=== PATIENT | female | born 1985 | race Caucasian/White ===

== ENCOUNTER 2021-01-16 22:22 | Emergency (ER) | payer MEDICAID ==
--- NOTE | 2021-01-16 22:35 | EDM.PDOC ---
ED HPI GENERAL MEDICAL PROBLEM - General Chief Complaint: ENT Problem Stated Complaint: THROAT IS SWOLLEN Time Seen by Provider: 01/16/21 22:34 - History of Present Illness INITIAL COMMENTS - FREE TEXT/NARRATIVE: 35-year-old female presents to the emergency room with throat discomfort. This is been going on for the last couple of days progressively getting worse. Patient also has a growing mass on her left forearm. She is not sure how that got there. Patient was not aware of any fevers or chills however she has low- grade fever here in the emergency department. Patient denies being under the influence of any medication or illicit drugs. She denies using any routine medications. - Related Data Allergies Allergy/AdvReac Type Severity Reaction Status Date / Time No Known Allergies Allergy Verified 01/16/21 22:51 Home Meds: Home Meds Clindamycin HCl 600 mg PO TID #42 capsule 01/17/21 [Rx] ED ROS GENERAL - Review of Systems Review Of Systems: See Below Constitutional: Reports: No Symptoms HEENT: Reports: Throat Pain, Throat Swelling Respiratory: Reports: No Symptoms Cardiovascular: Reports: No Symptoms Endocrine: Reports: No Symptoms GI/Abdominal: Reports: No Symptoms : Reports: No Symptoms Musculoskeletal: Reports: Other (Left arm pain) Skin: Reports: Other (She has a mass growing on the left arm most consistent with a developing abscess) Psychiatric: Reports: Anxiety Hematologic/Lymphatic: Reports: No Symptoms Immunologic: Reports: No Symptoms ED EXAM, GENERAL - Physical Exam Exam: See Below Exam Limited By: No Limitations General Appearance: Alert, Anxious, Other (I cannot exclude the possibility of her being under the influence of a stimulant type medication) Eye Exam: Bilateral Eye: Normal Inspection Ears: Normal External Exam, Normal Canal, Hearing Grossly Normal, Normal TMs Nose: Normal Inspection, Normal Mucosa, No Blood Throat/Mouth: Normal Inspection, Other (Mild erythema in the posterior pharynx no obvious swelling no airway compromise) Head: Atraumatic, Normocephalic Neck: Normal Inspection, Supple, Non-Tender, Full Range of Motion. No: Lymphadenopathy (L), Lymphadenopathy (R) Cardiovascular: Normal Peripheral Pulses, Regular Rate, Rhythm, No Edema GI/Abdominal: Normal Bowel Sounds, Soft, Non-Tender Extremities: Other (Patient has an abscess developing on her left forearm dorsal radial aspect. This is still fairly deep.) Psychiatric: Normal Affect, Normal Mood Skin Exam: Warm, Dry Lymphatic: No Adenopathy Course - Vital Signs Last Recorded V/S: Last Vital Signs Temp 38.0 C 01/16/21 22:44 Pulse 132 H 01/16/21 22:44 Resp 20 01/16/21 22:44 BP 84/54 L 01/16/21 22:44 Pulse Ox 99 01/16/21 22:44 - Orders/Labs/Meds Orders: Active Orders 24 hr Category Date Time Status Chest 1V Frontal [CR] Stat Exams 01/17/21 01:57 Taken CULTURE BLOOD [BC] Stat Lab 01/16/21 11:58 Received CULTURE BLOOD [BC] Stat Lab 01/16/21 23:35 Received CULTURE URINE [MREF] Stat Lab 01/17/21 02:44 Received THROAT CULTURE [MREF] Stat Lab 01/17/21 01:49 Ordered Blood Culture x2 Reflex Set [OM.PC] Stat Oth 01/16/21 22:49 Ordered Labs: Laboratory Tests 01/16/21 01/16/21 01/16/21 Range/Units 22:49 23:35 23:35 WBC 10.93 H (3.98-10.04) K/mm3 RBC 4.45 (3.98-5.22) M/mm3 Hgb 13.2 (11.2-15.7) gm/dl Hct 38.4 (34.1-44.9) % MCV 86.3 (79.4-94.8) fl MCH 29.7 (25.6-32.2) pg MCHC 34.4 (32.2-35.5) g/dl RDW Std Deviation 40.7 (36.4-46.3) fL Plt Count 150 L (182-369) K/mm3 MPV 10.2 (9.4-12.3) fl Neutrophils % (Manual) 87 H (40-60) % Band Neutrophils % 0 (0-10) % Lymphocytes % (Manual) 5 L (20-40) % Atypical Lymphs % 0 % Monocytes % (Manual) 5 (2-10) % Eosinophils % (Manual) 3 (0.7-5.8) % Basophils % (Manual) 0 L (0.1-1.2) Platelet Estimate Adequate RBC Morph Comment Normal ESR (0-20) mm/hr PT (9.7-12.0) SECONDS INR Sodium 131 L (136-145) mEq/L Potassium 3.5 (3.5-5.1) mEq/L Chloride 97 L (98-107) mEq/L Carbon Dioxide 25 (21-32) mEq/L Anion Gap 12.5 (5-15) BUN 48 H (7-18) mg/dL Creatinine 3.0 H (0.55-1.02) mg/dL Est Cr Clr Drug Dosing 27.09 mL/min Estimated GFR (MDRD) 18 (>60) mL/min BUN/Creatinine Ratio 16.0 (14-18) Glucose 131 H (70-99) mg/dL Lactic Acid 1.8 (0.4-2.0) mmol/L Calcium 8.1 L (8.5-10.1) mg/dL Total Bilirubin 1.0 (0.2-1.0) mg/dL AST 47 H (15-37) U/L ALT 83 H (14-59) U/L Alkaline Phosphatase 80 (46-116) U/L C-Reactive Protein (<1.0) mg/dL Total Protein 5.9 L (6.4-8.2) g/dl Albumin 2.8 L (3.4-5.0) g/dl Globulin 3.1 gm/dL Albumin/Globulin Ratio 0.9 L (1-2) HCG, Qual (NEGATIVE) Urine Color (Yellow) Urine Appearance (Clear) Urine pH (5.0-8.0) Ur Specific [place] (1.005-1.030) Urine Protein (Negative) Urine Glucose (UA) (Negative) Urine Ketones (Negative) Urine Occult Blood (Negative) Urine Nitrite (Negative) Urine Bilirubin (Negative) Urine Urobilinogen (0.2-1.0) Ur Leukocyte Esterase (Negative) U Hyaline Cast (Auto) (0-5) /lpf Urine RBC (0-5) /hpf Urine WBC (0-5) /hpf Ur Squamous Epith Cells (0-5) /hpf Urine Bacteria (FEW) /hpf Urine Mucus (FEW) /hpf Urine Opiates Screen (OQECLW=134) Ur Buprenorphine Scrn (CUTOFF=10) Ur Oxycodone Screen (AOL6HW=041) Urine Methadone Screen (XGBWKF=545) Ur Propoxyphene Screen (YRADCU=584) Ur Barbiturates Screen (NUXLMR=037) Ur Tricyclics Screen (IWFKGY=693) Ur Phencyclidine Scrn (CUTOFF=25) Ur Amphetamine Screen (CHBWHX=624) U Methamphetamines Scrn (KZSLDF=759) U Benzodiazepines Scrn (VKSKZP=506) U Cocaine Metab Screen (QRXAMI=825) U Marijuana (THC) Screen (CUTOFF=50) Ethyl Alcohol 0.00 (0.00) gm% SARS-CoV-2 RNA (KAYLYNN) (NEGATIVE) Group A Strep (PCR) (NOT DETECT) 01/16/21 01/16/21 01/16/21 Range/Units 23:35 23:35 23:35 WBC (3.98-10.04) K/mm3 RBC (3.98-5.22) M/mm3 Hgb (11.2-15.7) gm/dl Hct (34.1-44.9) % MCV (79.4-94.8) fl MCH (25.6-32.2) pg MCHC (32.2-35.5) g/dl RDW Std Deviation (36.4-46.3) fL Plt Count (182-369) K/mm3 MPV (9.4-12.3) fl Neutrophils % (Manual) (40-60) % Band Neutrophils % (0-10) % Lymphocytes % (Manual) (20-40) % Atypical Lymphs % % Monocytes % (Manual) (2-10) % Eosinophils % (Manual) (0.7-5.8) % Basophils % (Manual) (0.1-1.2) Platelet Estimate RBC Morph Comment ESR 10 (0-20) mm/hr PT 11.4 (9.7-12.0) SECONDS INR 1.07 Sodium (136-145) mEq/L Potassium (3.5-5.1) mEq/L Chloride (98-107) mEq/L Carbon Dioxide (21-32) mEq/L Anion Gap (5-15) BUN (7-18) mg/dL Creatinine (0.55-1.02) mg/dL Est Cr Clr Drug Dosing mL/min Estimated GFR (MDRD) (>60) mL/min BUN/Creatinine Ratio (14-18) Glucose (70-99) mg/dL Lactic Acid (0.4-2.0) mmol/L Calcium (8.5-10.1) mg/dL Total Bilirubin (0.2-1.0) mg/dL AST (15-37) U/L ALT (14-59) U/L Alkaline Phosphatase (46-116) U/L C-Reactive Protein 15.1 H* (<1.0) mg/dL Total Protein (6.4-8.2) g/dl Albumin (3.4-5.0) g/dl Globulin gm/dL Albumin/Globulin Ratio (1-2) HCG, Qual (NEGATIVE) Urine Color (Yellow) Urine Appearance (Clear) Urine pH (5.0-8.0) Ur Specific [place] (1.005-1.030) Urine Protein (Negative) Urine Glucose (UA) (Negative) Urine Ketones (Negative) Urine Occult Blood (Negative) Urine Nitrite (Negative) Urine Bilirubin (Negative) Urine Urobilinogen (0.2-1.0) Ur Leukocyte Esterase (Negative) U Hyaline Cast (Auto) (0-5) /lpf Urine RBC (0-5) /hpf Urine WBC (0-5) /hpf Ur Squamous Epith Cells (0-5) /hpf Urine Bacteria (FEW) /hpf Urine Mucus (FEW) /hpf Urine Opiates Screen (NAZMCW=646) Ur Buprenorphine Scrn (CUTOFF=10) Ur Oxycodone Screen (UYP7SY=046) Urine Methadone Screen (DFUKTH=563) Ur Propoxyphene Screen (ZCJCCR=540) Ur Barbiturates Screen (NWHTFC=450) Ur Tricyclics Screen (LNNSMP=205) Ur Phencyclidine Scrn (CUTOFF=25) Ur Amphetamine Screen (HRZTWO=502) U Methamphetamines Scrn (BDJSYG=126) U Benzodiazepines Scrn (WHMVLO=325) U Cocaine Metab Screen (DGPNLQ=802) U Marijuana (THC) Screen (CUTOFF=50) Ethyl Alcohol (0.00) gm% SARS-CoV-2 RNA (KAYLYNN) (NEGATIVE) Group A Strep (PCR) (NOT DETECT) 01/17/21 01/17/21 01/17/21 Range/Units 01:05 01:56 02:23 WBC (3.98-10.04) K/mm3 RBC (3.98-5.22) M/mm3 Hgb (11.2-15.7) gm/dl Hct (34.1-44.9) % MCV (79.4-94.8) fl MCH (25.6-32.2) pg MCHC (32.2-35.5) g/dl RDW Std Deviation (36.4-46.3) fL Plt Count (182-369) K/mm3 MPV (9.4-12.3) fl Neutrophils % (Manual) (40-60) % Band Neutrophils % (0-10) % Lymphocytes % (Manual) (20-40) % Atypical Lymphs % % Monocytes % (Manual) (2-10) % Eosinophils % (Manual) (0.7-5.8) % Basophils % (Manual) (0.1-1.2) Platelet Estimate RBC Morph Comment ESR (0-20) mm/hr PT (9.7-12.0) SECONDS INR Sodium (136-145) mEq/L Potassium (3.5-5.1) mEq/L Chloride (98-107) mEq/L Carbon Dioxide (21-32) mEq/L Anion Gap (5-15) BUN (7-18) mg/dL Creatinine (0.55-1.02) mg/dL Est Cr Clr Drug Dosing mL/min Estimated GFR (MDRD) (>60) mL/min BUN/Creatinine Ratio (14-18) Glucose (70-99) mg/dL Lactic Acid (0.4-2.0) mmol/L Calcium (8.5-10.1) mg/dL Total Bilirubin (0.2-1.0) mg/dL AST (15-37) U/L ALT (14-59) U/L Alkaline Phosphatase (46-116) U/L C-Reactive Protein (<1.0) mg/dL Total Protein (6.4-8.2) g/dl Albumin (3.4-5.0) g/dl Globulin gm/dL Albumin/Globulin Ratio (1-2) HCG, Qual Negative (NEGATIVE) Urine Color (Yellow) Urine Appearance (Clear) Urine pH (5.0-8.0) Ur Specific [place] (1.005-1.030) Urine Protein (Negative) Urine Glucose (UA) (Negative) Urine Ketones (Negative) Urine Occult Blood (Negative) Urine Nitrite (Negative) Urine Bilirubin (Negative) Urine Urobilinogen (0.2-1.0) Ur Leukocyte Esterase (Negative) U Hyaline Cast (Auto) (0-5) /lpf Urine RBC (0-5) /hpf Urine WBC (0-5) /hpf Ur Squamous Epith Cells (0-5) /hpf Urine Bacteria (FEW) /hpf Urine Mucus (FEW) /hpf Urine Opiates Screen (DGCIVM=943) Ur Buprenorphine Scrn (CUTOFF=10) Ur Oxycodone Screen (XME3HV=599) Urine Methadone Screen (XPAWHN=385) Ur Propoxyphene Screen (VHSBXH=968) Ur Barbiturates Screen (FGAYAS=852) Ur Tricyclics Screen (DHGPGU=690) Ur Phencyclidine Scrn (CUTOFF=25) Ur Amphetamine Screen (HAYYOH=616) U Methamphetamines Scrn (NTCWKU=617) U Benzodiazepines Scrn (BNGVJH=398) U Cocaine Metab Screen (ONVSHN=198) U Marijuana (THC) Screen (CUTOFF=50) Ethyl Alcohol (0.00) gm% SARS-CoV-2 RNA (KAYLYNN) Negative (NEGATIVE) Group A Strep (PCR) Not detected (NOT DETECT) 01/17/21 01/17/21 Range/Units 02:44 02:46 WBC (3.98-10.04) K/mm3 RBC (3.98-5.22) M/mm3 Hgb (11.2-15.7) gm/dl Hct (34.1-44.9) % MCV (79.4-94.8) fl MCH (25.6-32.2) pg MCHC (32.2-35.5) g/dl RDW Std Deviation (36.4-46.3) fL Plt Count (182-369) K/mm3 MPV (9.4-12.3) fl Neutrophils % (Manual) (40-60) % Band Neutrophils % (0-10) % Lymphocytes % (Manual) (20-40) % Atypical Lymphs % % Monocytes % (Manual) (2-10) % Eosinophils % (Manual) (0.7-5.8) % Basophils % (Manual) (0.1-1.2) Platelet Estimate RBC Morph Comment ESR (0-20) mm/hr PT (9.7-12.0) SECONDS INR Sodium (136-145) mEq/L Potassium (3.5-5.1) mEq/L Chloride (98-107) mEq/L Carbon Dioxide (21-32) mEq/L Anion Gap (5-15) BUN (7-18) mg/dL Creatinine (0.55-1.02) mg/dL Est Cr Clr Drug Dosing mL/min Estimated GFR (MDRD) (>60) mL/min BUN/Creatinine Ratio (14-18) Glucose (70-99) mg/dL Lactic Acid (0.4-2.0) mmol/L Calcium (8.5-10.1) mg/dL Total Bilirubin (0.2-1.0) mg/dL AST (15-37) U/L ALT (14-59) U/L Alkaline Phosphatase (46-116) U/L C-Reactive Protein (<1.0) mg/dL Total Protein (6.4-8.2) g/dl Albumin (3.4-5.0) g/dl Globulin gm/dL Albumin/Globulin Ratio (1-2) HCG, Qual (NEGATIVE) Urine Color Yellow (Yellow) Urine Appearance Slt cloudy H (Clear) Urine pH 6.0 (5.0-8.0) Ur Specific [place] 1.015 (1.005-1.030) Urine Protein Trace H (Negative) Urine Glucose (UA) Negative (Negative) Urine Ketones Negative (Negative) Urine Occult Blood 2+ H (Negative) Urine Nitrite Negative (Negative) Urine Bilirubin Negative (Negative) Urine Urobilinogen 0.2 (0.2-1.0) Ur Leukocyte Esterase 1+ H (Negative) U Hyaline Cast (Auto) 0-5 (0-5) /lpf Urine RBC 5-10 H (0-5) /hpf Urine WBC 10-20 H (0-5) /hpf Ur Squamous Epith Cells 0-5 (0-5) /hpf Urine Bacteria Many H (FEW) /hpf Urine Mucus Few (FEW) /hpf Urine Opiates Screen Negative (ROJLFZ=671) Ur Buprenorphine Scrn Negative (CUTOFF=10) Ur Oxycodone Screen Negative (YJX7LL=424) Urine Methadone Screen Negative (HGFIBD=572) Ur Propoxyphene Screen Negative (JIFPDI=512) Ur Barbiturates Screen Negative (YSCCWZ=249) Ur Tricyclics Screen Negative (MBYJSL=451) Ur Phencyclidine Scrn Negative (CUTOFF=25) Ur Amphetamine Screen Presumptive positive H (IGKXRB=592) U Methamphetamines Scrn Presumptive positive H (BUNIZV=020) U Benzodiazepines Scrn Negative (LTWPZP=717) U Cocaine Metab Screen Negative (YQGAFW=805) U Marijuana (THC) Screen Negative (CUTOFF=50) Ethyl Alcohol (0.00) gm% SARS-CoV-2 RNA (KAYLYNN) (NEGATIVE) Group A Strep (PCR) (NOT DETECT) Meds: Medications Discontinued Medications Generic Name Dose Route Start Last Admin Trade Name Etelvina PRN Reason Stop Dose Admin Clindamycin HCl 600 mg 01/17/21 02:47 01/17/21 02:52 Clindamycin Hcl 150 Mg Cap PO 01/17/21 02:48 600 mg ONETIME ONE Administration Lactated Ringer's 1,000 mls @ 999 mls/hr 01/16/21 22:51 01/16/21 23:18 Ringers, Lactated IV 01/16/21 23:51 999 mls/hr .BOLUS ONE Administration Lactated Ringer's 1,000 mls @ 150 mls/hr 01/16/21 23:00 01/17/21 02:44 Ringers, Lactated IV 500 mls/hr ASDIRECTED PAULY Infusion Lactated Ringer's 1,000 mls @ 999 mls/hr 01/17/21 01:15 01/17/21 02:44 Ringers, Lactated IV 01/17/21 02:15 999 mls/hr ONETIME ONE Administration - Re-Assessments/Exams Free Text/Narrative Re-Assessment/Exam: 01/17/21 01:47 Getting IV access was difficult we now have to small bore IVs. The patient is responding to fluid after the first liter pulses right around 100 her MAP is 66. Labs are concerning creatinine of 3.0 BUN 48 White count is minimally elevated. The patient has been reluctant for us to get a cath UA and I have informed her of the importance of getting this somewhat no for dealing with an infection there. Now she thinks she can go we will try this. The patient does not want to stay in the hospital despite multiple discussions about the dangers she is in. I explained to her she could because it looks like she is developing an overwhelming infection. Her kidneys are failing. But she refuses to stay. I did discuss the situation with the telepharmacy about antibiotics and about the best we can come up with his clindamycin 600 mg 3 times a day. 01/17/21 02:53 The patient is still insistent on leaving. I was hoping to give her her initial dose of antibiotics IV but she is wanting to go. I again informed her that she could because of this. Her kidneys are failing and this could get worse. She has a developing abscess on her left forearm it is not ready to drain at this time however this could change soon. By leaving the hospital she could have worsening disability down the road. The patient's work-up is not complete but she does not want to stick around. The patient informs me she has the ability to get her antibiotics filled so she is given a prescription for clindamycin 300 mg tablets 2 tablets 3 times a day for 7 days. This was not E scribed as the patient was not sure what pharmacy to use. 01/17/21 02:56 01/17/21 03:22 After the patient left her urinalysis came back suggestive of UTI. Departure - Departure Time of Disposition: 02:48 Disposition: Against Medical Advice 07 Clinical Impression: Sepsis, Abscess of left arm, Kidney failure - Discharge Information Prescriptions: Clindamycin HCl 600 mg PO TID #42 capsule Instructions: Skin Abscess, [id number], Sepsis, Diagnosis, Adult Referrals: PCP,None [Primary Care Provider] - Forms: ED Department Discharge Additional Instructions: Return to the emergency room with any questions problems or worsening symptoms. Drink lots of fluids. You have been started on clindamycin this is an antibiotic take 2 capsules every 8 hours until all gone. Follow-up in the hospital clinic later today for recheck their phone number is [phone] call early to set up an appointment. Sepsis Event Note (ED) - Focused Exam Vital Signs: Vital Signs Temp Pulse Resp BP Pulse Ox 01/16/21 22:44 38.0 C 132 H 20 84/54 L 99 - My Orders Last 24 Hours: My Active Orders 01/16/21 11:58 CULTURE BLOOD [BC] Stat 01/16/21 22:49 Blood Culture x2 Reflex Set [OM.PC] Stat 01/16/21 23:35 CULTURE BLOOD [BC] Stat 01/17/21 01:49 THROAT CULTURE [MREF] Stat 01/17/21 01:57 Chest 1V Frontal [CR] Stat 01/17/21 02:44 CULTURE URINE [MREF] Stat - Assessment/Plan Last 24 Hours: My Active Orders 01/16/21 11:58 CULTURE BLOOD [BC] Stat 01/16/21 22:49 Blood Culture x2 Reflex Set [OM.PC] Stat 01/16/21 23:35 CULTURE BLOOD [BC] Stat 01/17/21 01:49 THROAT CULTURE [MREF] Stat 01/17/21 01:57 Chest 1V Frontal [CR] Stat 01/17/21 02:44 CULTURE URINE [MREF] Stat
[2021-01-16] MEDS ORDERED: Lactated Ringers 1,000 ML IV ONE (22:51)
[2021-01-16] MEDS ORDERED: Lactated Ringers 1,000 ML IV SCH (23:00)
[2021-01-17] MEDS ORDERED: Lactated Ringers 1,000 ML IV ONE (01:15)
[2021-01-17] MEDS ORDERED: Clindamycin HCl 150 MG Cap PO ONE (02:47)
--- NOTE | 2021-01-17 08:05 | CR ---
Chest: Portable view of the chest was obtained. Comparison: No prior chest imaging is available. Heart size and mediastinum are normal. Lungs are clear with no acute parenchymal change. Bony structures are within normal limits. Impression: 1. Nothing acute is seen on portable chest x-ray. Diagnostic code #1
== END 2021-01-17 03:00 | disposition left against medical advice (07) ==
LOC: JD.ED 22:22
DX: A41.9 Sepsis, unspecified organism (principal); N19 Unspecified kidney failure; L02.414 Cutaneous abscess of left upper limb; Z20.822 Contact with and (suspected) exposure to COVID-19
CPT/HCPCS: 36415; 71045; 80053; 80306; 80307; 81001; 83605; 84703; 85007; 85027; 85610; 85652; 86140; 87040; 87070; 87086; 87635; 87651; 99283; A9270; J7120; 99284; U0002

== ENCOUNTER 2021-01-17 09:21 | Inpatient (IN) | payer MEDICAID ==
[2021-01-17] MEDS ORDERED: Sodium Chloride 0.9% 10 ML Syringe FLUSH PRN (10:00)
[2021-01-17] MEDS ORDERED: LORazepam 2 MG/ML SDV IVPUSH ONE (10:01)
[2021-01-17] MEDS ORDERED: Haloperidol Lactate 5 MG/ML SDV IVPUSH ONE (10:01)
[2021-01-17] MEDS ORDERED: Sodium Chloride 0.9% 1,000 ML IV ONE ×3 (10:01→15:15)
--- NOTE | 2021-01-17 10:08 | EDM.PDOC ---
ED HPI GENERAL MEDICAL PROBLEM - General Chief Complaint: ENT Problem Stated Complaint: SWOLLEN THROAT Time Seen by Provider: 01/17/21 09:27 Source of Information: Reports: Patient History Limitations: Reports: No Limitations - History of Present Illness INITIAL COMMENTS - FREE TEXT/NARRATIVE: 35 yo F returns to the ED for care after leaving AMA from the ED several hours ago. She has bilateral forearm redness and swelling. She thinks it started about 4 days ago. She is somewhat evasive about the history and is mildly altered/appears to be responding to internal stimuli which limits the history. She denies drug use (though a drug screen from recent visit is positive for meth). She is unsure whether she's had a fever. Denies vomiting/diarrhea. No respiratory symptoms. She doesn't answer further ROS/social history questions. She does state arm is painful and she is willing to stay for treatment. Hx untreated hepatitis C, no known history of kidney problems. Left Arm Pain Score (Numeric/FACES): 5 - Related Data Allergies Allergy/AdvReac Type Severity Reaction Status Date / Time No Known Allergies Allergy Verified 01/17/21 09:28 Home Meds: Home Meds Clindamycin HCl 600 mg PO TID #42 capsule 01/17/21 [Rx] Past Medical History - Past Health History Medical/Surgical History: Denies Medical/Surgical History ED ROS GENERAL - Review of Systems Review Of Systems: See Below Constitutional: Reports: Fever HEENT: Reports: No Symptoms Respiratory: Reports: No Symptoms Cardiovascular: Reports: No Symptoms Endocrine: Reports: No Symptoms GI/Abdominal: Reports: No Symptoms : Reports: No Symptoms Musculoskeletal: Reports: Arm Pain Skin: Reports: Erythema, Lesions Neurological: Reports: No Symptoms Psychiatric: Reports: Anxiety Hematologic/Lymphatic: Reports: No Symptoms Immunologic: Reports: No Symptoms ED EXAM, GENERAL - Physical Exam Exam: See Below Exam Limited By: No Limitations General Appearance: Alert, Anxious Eye Exam: Bilateral Eye: Normal Inspection Ears: Normal External Exam Nose: Normal Inspection Throat/Mouth: Normal Inspection, Normal Oropharynx, Normal Voice Head: Atraumatic, Normocephalic Neck: Normal Inspection, Supple Respiratory/Chest: No Respiratory Distress, Lungs Clear, Normal Breath Sounds Cardiovascular: Regular Rate, Rhythm, Tachycardia GI/Abdominal: Soft, Non-Tender, No Distention Extremities: Other (bilateral forearm erythema/warmth/TTP, L forearm has a developing area of fluctuance, no drainage. area of cellulitis on both extremities is confluent and extends from hands to elbows. she does have track stokes bilaterally. ) Neurological: Alert, Oriented Psychiatric: Other (anxious, mildly agitated, appears to be responding to internal stimuli. she is cooperative. ) Skin Exam: Warm, Dry Course - Vital Signs Last Recorded V/S: Last Vital Signs Temp 36.3 C 01/17/21 09:37 Pulse 109 H 01/17/21 09:37 Resp 16 01/17/21 09:37 BP 100/55 L 01/17/21 09:37 Pulse Ox 95 01/17/21 09:37 - Orders/Labs/Meds Orders: Active Orders 24 hr Category Date Time Status Peripheral IV Care [RC] . DIRECTED Care 01/17/21 10:00 Active Peripheral IV Care [RC] . DIRECTED Care 01/17/21 10:00 Active CBC WITH AUTO DIFF [HEME] Stat Lab 01/17/21 10:30 Results CULTURE BLOOD [BC] Stat Lab 01/17/21 10:30 Received CULTURE BLOOD [BC] Stat Lab 01/17/21 10:30 Received Sodium Chloride 0.9% [Normal Saline] 1,000 ml Med 01/17/21 11:27 Active IV ONETIME Sodium Chloride 0.9% [Saline Flush] Med 01/17/21 10:00 Active 10 ml FLUSH ASDIRECTED PRN Vancomycin 1 gm Med 01/17/21 10:30 Active Vancomycin 500 mg Sodium Chloride 0.9% [Normal Saline] 500 ml IV ONETIME Blood Culture x2 Reflex Set [OM.PC] Stat Oth 01/17/21 10:00 Ordered Peripheral IV Insertion Adult [OM.PC] Routine Oth 01/17/21 10:00 Ordered Medication Orders Vancomycin HCl 1 gm/Vancomycin HCl 500 mg/ Sodium Chloride 500 mls @ 250 mls/hr IV ONETIME ONE Stop: 01/17/21 12:29 Last Admin: 01/17/21 10:48 Dose: 250 mls/hr Documented by: SHAKIR Sodium Chloride (Normal Saline) 1,000 mls @ 1,000 mls/hr IV ONETIME ONE Stop: 01/17/21 12:26 Sodium Chloride (Sodium Chloride 0.9% 10 Ml Syringe) 10 ml FLUSH ASDIRECTED PRN PRN Reason: Keep Vein Open Last Admin: 01/17/21 10:45 Dose: 10 ml Documented by: SHAKIR Labs: Laboratory Tests 01/17/21 01/17/21 01/17/21 Range/Units 10:30 10:30 10:30 WBC 9.20 (3.98-10.04) K/mm3 RBC 4.08 (3.98-5.22) M/mm3 Hgb 12.1 (11.2-15.7) gm/dl Hct 34.8 (34.1-44.9) % MCV 85.3 (79.4-94.8) fl MCH 29.7 (25.6-32.2) pg MCHC 34.8 (32.2-35.5) g/dl RDW Std Deviation 40.3 (36.4-46.3) fL Plt Count 146 L (182-369) K/mm3 MPV 10.4 (9.4-12.3) fl Neut % (Auto) 85.3 H (34.0-71.1) % Lymph % (Auto) 4.8 L (19.3-51.7) % [place] % (Auto) 5.3 (4.7-12.5) % Eos % (Auto) 4.5 (0.7-5.8) Baso % (Auto) 0.1 (0.1-1.2) % Neut # (Auto) 7.85 H (1.56-6.13) K/mm3 Lymph # (Auto) 0.44 L (1.18-3.74) K/mm3 [place] # (Auto) 0.49 H (0.24-0.36) K/mm3 Eos # (Auto) 0.41 H (0.04-0.36) K/mm3 Baso # (Auto) 0.01 (0.01-0.08) K/mm3 Sodium 135 L (136-145) mEq/L Potassium 3.1 L (3.5-5.1) mEq/L Chloride 101 (98-107) mEq/L Carbon Dioxide 25 (21-32) mEq/L Anion Gap 12.1 (5-15) BUN 31 H (7-18) mg/dL Creatinine 1.7 H D (0.55-1.02) mg/dL Est Cr Clr Drug Dosing 47.81 mL/min Estimated GFR (MDRD) 34 (>60) mL/min BUN/Creatinine Ratio 18.2 H (14-18) Glucose 142 H (70-99) mg/dL Lactic Acid 1.2 (0.4-2.0) mmol/L Calcium 7.9 L (8.5-10.1) mg/dL Total Bilirubin 0.8 (0.2-1.0) mg/dL AST 38 H (15-37) U/L ALT 70 H (14-59) U/L Alkaline Phosphatase 69 (46-116) U/L Total Protein 5.5 L (6.4-8.2) g/dl Albumin 2.6 L (3.4-5.0) g/dl Globulin 2.9 gm/dL Albumin/Globulin Ratio 0.9 L (1-2) Meds: Medications Generic Name Dose Route Start Last Admin Trade Name Nachoq PRN Reason Stop Dose Admin Vancomycin HCl 1 gm/ 500 mls @ 250 mls/hr 01/17/21 10:30 01/17/21 10:48 Vancomycin HCl 500 mg/ Sodium IV 01/17/21 12:29 250 mls/hr Chloride ONETIME ONE Administration Sodium Chloride 1,000 mls @ 1,000 mls/hr 01/17/21 11:27 Normal Saline IV 01/17/21 12:26 ONETIME ONE Sodium Chloride 10 ml 01/17/21 10:00 01/17/21 10:45 Sodium Chloride 0.9% 10 Ml Syringe FLUSH 10 ml ASDIRECTED PRN Administration Keep Vein Open Discontinued Medications Generic Name Dose Route Start Last Admin Trade Name Nachoq PRN Reason Stop Dose Admin Haloperidol Lactate 2.5 mg 01/17/21 10:01/17/21 10:42 Haloperidol Lactate 5 Mg/Ml Sdv IVPUSH 01/17/21 10:02 2.5 mg ONETIME ONE Administration Sodium Chloride 1,000 mls @ 1,000 mls/hr 01/17/21 10:01/17/21 10:37 Normal Saline IV 01/17/21 11:00 1,000 mls/hr ONETIME ONE Administration Lorazepam 1 mg 01/17/21 10:01/17/21 10:38 Lorazepam 2 Mg/Ml Sdv IVPUSH 01/17/21 10:02 1 mg ONETIME ONE Administration - Re-Assessments/Exams Free Text/Narrative Re-Assessment/Exam: 01/17/21 10:11 Labs from last night significant for creatinine of 3.0. We will repeat labs now. Ordered vancomycin for concern for sepsis. Anticipate admission for cellulitis/sepsis. Abscess on L forearm will need drainage at some point - however, she is mildly agitated/appears to be responding to internal stimuli, likely due to meth use. Will wait until she is more sober for consent from patient and for better safety for healthcare workers involved. 01/17/21 11:[address] Fernandez who agrees to evaluate the patient for admission. She is sleeping comfortably after ativan and haldol. Will give a second L of NS. Creatinine improved this morning to 1.7. CBC/lactate OK. Departure - Departure Time of Disposition: 11:29 Disposition: Admitted As Inpatient 65 Clinical Impression: Right forearm cellulitis, Cellulitis of left forearm, Acute kidney injury, Abscess of left forearm, Methamphetamine intoxication, Dehydration - Discharge Information Referrals: PCP,None [Primary Care Provider] - Forms: ED Department Discharge Sepsis Event Note (ED) - Evaluation Sepsis Screening Result: Possible Sepsis Risk - Focused Exam Vital Signs: Vital Signs Temp Pulse Resp BP Pulse Ox 01/17/21 09:37 36.3 C 109 H 16 100/55 L 95 - My Orders Last 24 Hours: My Active Orders 01/17/21 10:00 Peripheral IV Care [RC] . DIRECTED Peripheral IV Care [RC] . DIRECTED Sodium Chloride 0.9% [Saline Flush] 10 ml FLUSH ASDIRECTED PRN Blood Culture x2 Reflex Set [OM.PC] Stat Peripheral IV Insertion Adult [OM.PC] Routine 01/17/21 10:30 CBC WITH AUTO DIFF [HEME] Stat CULTURE BLOOD [BC] Stat CULTURE BLOOD [BC] Stat Vancomycin 1 gm Vancomycin 500 mg Sodium Chloride 0.9% [Normal Saline] 500 ml IV ONETIME 01/17/21 11:27 Sodium Chloride 0.9% [Normal Saline] 1,000 ml IV ONETIME - Assessment/Plan Last 24 Hours: My Active Orders 01/17/21 10:00 Peripheral IV Care [RC] . DIRECTED Peripheral IV Care [RC] . DIRECTED Sodium Chloride 0.9% [Saline Flush] 10 ml FLUSH ASDIRECTED PRN Blood Culture x2 Reflex Set [OM.PC] Stat Peripheral IV Insertion Adult [OM.PC] Routine 01/17/21 10:30 CBC WITH AUTO DIFF [HEME] Stat CULTURE BLOOD [BC] Stat CULTURE BLOOD [BC] Stat Vancomycin 1 gm Vancomycin 500 mg Sodium Chloride 0.9% [Normal Saline] 500 ml IV ONETIME 01/17/21 11:27 Sodium Chloride 0.9% [Normal Saline] 1,000 ml IV ONETIME
[2021-01-17] MEDS ORDERED: Vancomycin 1 GM, Vancomycin 500 MG in Sodium Chloride 0.9% 500 ML IV ONE (10:30)
[2021-01-17] MEDS ORDERED: Ondansetron 4 MG/2 ML SDV IV PRN (11:43)
[2021-01-17] MEDS ORDERED: Acetaminophen 325 MG Tab PO PRN (11:43)
[2021-01-17] MEDS ORDERED: Ondansetron 4 MG Tab.DIS PO PRN (11:43)
[2021-01-17] MEDS ORDERED: HYDROmorphone 0.5 MG/0.5 ML Syringe IVPUSH PRN (11:43)
[2021-01-17] MEDS ORDERED: Heparin Sodium 5,000 Units/ML Vial SUBCUT SCH (11:45)
--- NOTE | 2021-01-17 15:42 | US ---
Left forearm ultrasound: Multiple real-time images of the lateral left forearm were obtained in the area described as area of lump and swelling. Findings: Diffuse soft tissue edema is seen. Possible complex fluid is seen within the subcutaneous tissues measuring 4.3 x 2.8 x 1.2 cm which either represents focal area of infection or abscess. No additional abnormality is seen to suggest additional abscess. Impression: 1. Diffuse soft tissue swelling. 2. Focal area of infection or abscess with measurements as noted above. Diagnostic code #3
[2021-01-17] MEDS: Heparin Sodium 5,000 Units/ML Vial SUBCUT SCH ×2 (15:55→22:38)
--- NOTE | 2021-01-17 16:07 | PCM.HP.2 ---
H&P History of Present Illness - General Date of Service: 01/17/21 Admit Problem/Dx: Admission Diagnosis/Problem Admission Diagnosis/Problem Sepsis Source of Information: Old Records, RN Notes Reviewed History Limitations: Reports: Altered Mental Status, Intoxication - History of Present Illness Initial Comments - Free Text/Narative: This is a 35F with limited known past medical history presenting for evaluation of left arm pain. The patient was sedated at time of evaluation with ativan and haldol and unable to provide history. Hx obtained from chart review. The patient has history of methamphetamine use and possible polysubstance abuse. She originally presented to ED yesterday for evaluation of cellulitis of forearm but left AMA. She presented back to ED this morning. She was started on IVF and vancomycin. She was noted to be agitated and given ativan and haldol. Notable labs included Cr 1.7. She was given IVF and antibiotics and admitted for further evaluation ROS unable to obtain ROS due to AMS/sedation PMHX Acute kidney injury Polysubstance abuse Hx of methamphetamine use PSurgical Hx unknown Family Hx unknown Social Hx unknown/unable to obtaine +hx of methamphetamine use Left Arm Pain Score (Numeric/FACES): 5 - Related Data Allergies/Adverse Reactions: Allergies Allergy/AdvReac Type Severity Reaction Status Date / Time No Known Allergies Allergy Verified 01/17/21 09:28 Home Medications: Home Meds . [No Known Home Meds] 01/17/21 [History] Past Medical History Psychiatric History: Reports: Addiction - Infectious Disease History Infectious Disease History: Reports: Hepatitis C Social & Family History - Family History Family Medical History: Unobtainable - Tobacco Use Tobacco Use Status *Q: Never Tobacco User Second Hand Smoke Exposure: No - Caffeine Use Caffeine Use: Reports: None - Recreational Drug Use Recreational Drug Use: Yes Drug Use in Last 12 Months: Yes Recreational Drug Type: Reports: Methamphetamine Recreational Drug Use Frequency: Weekly H&P Review of Systems - Review of Systems: Review Of Systems: Unable To Obtain Reason Not Obtained: sedation Free Text/Narrative: unable to obtain due to encephalopathy Exam - Exam Exam: See Below - Vital Signs Vital Signs: Last Vital Signs Temp 97.4 F 01/17/21 09:37 Pulse 109 H 01/17/21 09:37 Resp 16 01/17/21 09:37 BP 100/55 L 01/17/21 09:37 Pulse Ox 95 01/17/21 09:37 Weight: 172 lb - Exam Physical Exam Comments:: Gen: no acute distress, sedated and sleeping HEENT: NCAT EOMI MMM Neck: Supple CV: tachycardic; normal s1 s2 Lungs: CTAB Abd: soft, nt, nd Neuro: moves extremities; sleeping; unable to follow commands psych: unable to assess MSK: age appropriate muscle mass Skin: erythema left and right forearm; 4cm circumfrential induration left forearm - Patient Data Lab Results Last 24 hrs: Laboratory Results - last 24 hr 01/17/21 01/17/21 01/17/21 Range/Units 10:30 10:30 10:30 WBC 9.20 (3.98-10.04) K/mm3 RBC 4.08 (3.98-5.22) M/mm3 Hgb 12.1 (11.2-15.7) gm/dl Hct 34.8 (34.1-44.9) % MCV 85.3 (79.4-94.8) fl MCH 29.7 (25.6-32.2) pg MCHC 34.8 (32.2-35.5) g/dl RDW Std Deviation 40.3 (36.4-46.3) fL Plt Count 146 L (182-369) K/mm3 MPV 10.4 (9.4-12.3) fl Neut % (Auto) 85.3 H (34.0-71.1) % Lymph % (Auto) 4.8 L (19.3-51.7) % [place] % (Auto) 5.3 (4.7-12.5) % Eos % (Auto) 4.5 (0.7-5.8) Baso % (Auto) 0.1 (0.1-1.2) % Neut # (Auto) 7.85 H (1.56-6.13) K/mm3 Lymph # (Auto) 0.44 L (1.18-3.74) K/mm3 [place] # (Auto) 0.49 H (0.24-0.36) K/mm3 Eos # (Auto) 0.41 H (0.04-0.36) K/mm3 Baso # (Auto) 0.01 (0.01-0.08) K/mm3 Manual Slide Review Abnormal smear Sodium 135 L (136-145) mEq/L Potassium 3.1 L (3.5-5.1) mEq/L Chloride 101 (98-107) mEq/L Carbon Dioxide 25 (21-32) mEq/L Anion Gap 12.1 (5-15) BUN 31 H (7-18) mg/dL Creatinine 1.7 H D (0.55-1.02) mg/dL Est Cr Clr Drug Dosing 47.81 mL/min Estimated GFR (MDRD) 34 (>60) mL/min BUN/Creatinine Ratio 18.2 H (14-18) Glucose 142 H (70-99) mg/dL Lactic Acid 1.2 (0.4-2.0) mmol/L Calcium 7.9 L (8.5-10.1) mg/dL Total Bilirubin 0.8 (0.2-1.0) mg/dL AST 38 H (15-37) U/L ALT 70 H (14-59) U/L Alkaline Phosphatase 69 (46-116) U/L Total Protein 5.5 L (6.4-8.2) g/dl Albumin 2.6 L (3.4-5.0) g/dl Globulin 2.9 gm/dL Albumin/Globulin Ratio 0.9 L (1-2) Result Diagrams: 01/17/21 10:30 01/17/21 10:30 Sepsis Event Note - Evaluation Sepsis Screening Result: Possible Sepsis Risk Current Stage of Sepsis: Sepsis - Focused Exam Sepsis Event Note Statement: Focused Sepsis Exam Completed Vital Signs: Vital Signs Temp Pulse Resp BP Pulse Ox 01/17/21 09:37 97.4 F 109 H 16 100/55 L 95 *Q Meaningful Use (ADM) - VTE *Q VTE Criteria *Q: 1 - VTE Risk Assess *Q Each Risk Factor Represents 1 Point: None, Sepsis Total Score 1 Point Risk Factors: 1 - Problem List (1) Abscess of left forearm SNOMED Code(s): 38519593216664252 ICD Code: L02.414 - CUTANEOUS ABSCESS OF LEFT UPPER LIMB Status: Acute Current Visit: Yes Problem List Initiated/Reviewed/Updated: Yes Orders Last 24hrs: Active Orders 24 hr Category Date Time Status Patient Status [ADT] Routine ADT 01/17/21 13:47 Active Cardiac Monitoring [RC] CONTINUOUS Care 01/17/21 11:44 Active Intake and Output [RC] 04,16 Care 01/17/21 11:44 Active Notify Provider Consults [RC] ASDIRECTED Care 01/17/21 14:33 Active Oxygen Therapy [RC] PRN Care 01/17/21 11:43 Active VTE/DVT Education [RC] , Care 01/17/21 11:43 Active Vital Signs [RC] Q4HR Care 01/17/21 11:43 Active Consult to Physician [CONS] Routine Cons 01/17/21 14:32 Active Regular Diet [DIET] Diet 01/17/21 Lunch Active CULTURE BLOOD [BC] Stat Lab 01/17/21 10:30 Received CULTURE BLOOD [BC] Stat Lab 01/17/21 10:30 Received Acetaminophen [TylenoL] Med 01/17/21 11:43 Active 650 mg PO Q4H PRN HYDROmorphone [Dilaudid] Med 01/17/21 11:43 Active 0.5 mg IVPUSH Q2H PRN Heparin Sodium Med 01/17/21 15:00 Active 5,000 units SUBCUT Q8H Lactated Ringers [Ringers, Lactated] 1,000 ml Med 01/17/21 11:45 Active IV ASDIRECTED Ondansetron [Zofran ODT] Med 01/17/21 11:43 Active 4 mg PO Q4H PRN Ondansetron [Zofran] Med 01/17/21 11:43 Active 4 mg IV Q4H PRN Pharmacy to Dose - Vancomycin Med 01/17/21 14:30 Active 1 dose .XX ASDIRECTED PRN Sodium Chloride 0.9% [Normal Saline] 1,000 ml Med 01/17/21 15:15 Active IV ONETIME Sodium Chloride 0.9% [Saline Flush] Med 01/17/21 10:00 Active 10 ml FLUSH ASDIRECTED PRN Vancomycin 1 gm Med 01/17/21 22:00 Active Vancomycin 250 mg Sodium Chloride 0.9% [Normal Saline] 250 ml IV Q12H oxyCODONE Med 01/17/21 11:43 Active 5 mg PO Q4H PRN Blood Culture x2 Reflex Set [OM.PC] Stat Oth 01/17/21 10:00 Ordered Peripheral IV Insertion Adult [OM.PC] Routine Oth 01/17/21 10:00 Ordered Resuscitation Status Routine Resus Stat 01/17/21 11:43 Ordered Medication Orders Acetaminophen (Acetaminophen 325 Mg Tab) 650 mg PO Q4H PRN PRN Reason: Pain (Mild 1-3)/fever Heparin Sodium (Porcine) (Heparin Sodium 5,000 Units/Ml Vial) 5,000 units SUBCUT Q8H [facility] Last Admin: 01/17/21 15:55 Dose: 5,000 units Documented by: [id number] Hydromorphone HCl (Hydromorphone 0.5 Mg/0.5 Ml Syringe) 0.5 mg IVPUSH Q2H PRN PRN Reason: Pain (severe 7-10) Lactated Ringer's (Ringers, Lactated) 1,000 mls @ 125 mls/hr IV ASDIRECTED [facility] Vancomycin HCl 1 gm/Vancomycin HCl 250 mg/ Sodium Chloride 250 mls @ 166.667 mls/hr IV Q12H [facility] Sodium Chloride (Normal Saline) 1,000 mls @ 1,000 mls/hr IV ONETIME ONE Stop: 01/17/21 16:14 Last Admin: 01/17/21 15:05 Dose: 1,000 mls/hr Documented by: [id number] Ondansetron HCl (Ondansetron 4 Mg Tab.Dis) 4 mg PO Q4H PRN PRN Reason: nausea, able to take PO Ondansetron HCl (Ondansetron 4 Mg/2 Ml Sdv) 4 mg IV Q4H PRN PRN Reason: Nausea/Vomiting Oxycodone HCl (Oxycodone 5 Mg Tab) 5 mg PO Q4H PRN PRN Reason: Pain (moderate 4-6) Sodium Chloride (Sodium Chloride 0.9% 10 Ml Syringe) 10 ml FLUSH ASDIRECTED PRN PRN Reason: Keep Vein Open Last Admin: 01/17/21 10:45 Dose: 10 ml Documented by: SHAKIR Vancomycin HCl (Pharmacy To Dose - Vancomycin) 1 dose .XX ASDIRECTED PRN PRN Reason: RX TO DOSE VANCO Assessment/Plan Comment:: Assessment: This is 35F presenting with sepsis secondary to left upper extremity cellulitis 1. Sepsis/LUE cellulitis 2. Acute kidney injury; likely pre-renal 3. Mild hypovolemic hyponatremia 135 4. Hypokalemia; potassium 3.1 5. Mild thrombocytopenia 6. Transaminitis 7. Hx of methamphetamine use 8. Metabolic encephalopathy Plan -admit to icu -continue vanco; pharm to dose -UE US -Gen surgical consult for I&D -IVF -monitor I&O -electrolyte replacement -echo to evaluate for possible endocarditis -UA -avoid nephrotoxic agents; if renal function not improved; will get renal US -avoid sedating medications Code-Full code DVT ppx-heparin subq Dispo-DC to home 3-5 days - Mortality Measure Prognosis:: Good
[2021-01-17] MEDS ORDERED: Potassium Chloride 10 MEQ in Premix Bag 1 BAG IV SCH ×4 (16:15)
[2021-01-17] MEDS: Lactated Ringers 1,000 ML IV SCH (16:30)
[2021-01-17] MEDS ORDERED: Potassium Chloride 20 MEQ Tab.ER PO ONE (16:45)
[2021-01-17] MEDS: oxyCODONE 5 MG Tab PO PRN ×2 (18:20→22:38)
[2021-01-17] MEDS ORDERED: Lidocaine 1% with EPINEPHrine 1:100,000 10 ML MDV ONE ×2 (19:44→19:45)
[2021-01-17] MEDS ORDERED: Lidocaine 1% 10 ML MDV ONE (19:50)
--- NOTE | 2021-01-17 20:20 | PCM.CONS ---
H&P History of Present Illness - General Date of Service: 01/17/21 Admit Problem/Dx: Admission Diagnosis/Problem Admission Diagnosis/Problem Sepsis Source of Information: Patient, Provider - History of Present Illness Initial Comments - Free Text/Narative: The patient presents to the ED today complaining of a sore throat. She also has significant cellulitis on the left arm with history of IV drug use. She reports the left arm has been painful for the last 5 days. She complains of significant pain in the left 3rd digit. she denies any fever, chills or weakness. Left Arm Pain Score (Numeric/FACES): 10 - Related Data Allergies/Adverse Reactions: Allergies Allergy/AdvReac Type Severity Reaction Status Date / Time No Known Allergies Allergy Verified 01/17/21 09:28 Home Medications: Home Meds . [No Known Home Meds] 01/17/21 [History] Past Medical History - Past Health History Medical/Surgical History: Denies Medical/Surgical History Psychiatric History: Reports: Addiction - Infectious Disease History Infectious Disease History: Reports: Hepatitis C Social & Family History - Family History Oncologic: Reports: Other (See Below) (father with multiple cancers) - Tobacco Use Tobacco Use Status *Q: Current Some Day Tobacco User Years of Tobacco use: 20 Packs/Tins Daily: 0.5 Second Hand Smoke Exposure: No - Caffeine Use Caffeine Use: Reports: None - Recreational Drug Use Recreational Drug Use: Yes Drug Use in Last 12 Months: Yes Recreational Drug Type: Reports: Methamphetamine Recreational Drug Use Frequency: Daily H&P Review of Systems - Review of Systems: Review Of Systems: See Below General: Reports: No Symptoms Pulmonary: Reports: No Symptoms Cardiovascular: Reports: No Symptoms Gastrointestinal: Reports: No Symptoms Genitourinary: Reports: No Symptoms Musculoskeletal: Reports: No Symptoms Skin: Reports: Erythema Neurological: Reports: No Symptoms Hematologic/Lymphatic: Reports: No Symptoms Exam - Exam Exam: See Below - Vital Signs Vital Signs: Last Vital Signs Temp 36.3 C 01/17/21 09:37 Pulse 109 H 01/17/21 09:37 Resp 16 01/17/21 09:37 BP 100/55 L 01/17/21 09:37 Pulse Ox 95 01/17/21 09:37 Weight: 79.464 kg - Exam Quality Assessment: No: Supplemental Oxygen General: Alert, Oriented, Lethargic HEENT: Conjunctiva Clear, EOMI Neck: Supple Lungs: Normal Respiratory Effort Cardiovascular: Regular Rate, Regular Rhythm GI/Abdominal Exam: Soft, Non-Tender, No Distention Extremities: Other (bilatera hand swelling with pitting edema of LUE) Peripheral Pulses: 2+: Radial (L), Dorsalis Pedis (L), Dorsalis Pedis (R) Skin: Warm, Dry, Intact, Other (erythema with fluctuant absces on the left arm) Neurological: Cranial Nerves Intact Neuro Extensive - Mental Status: Normal Mood/Affect - Patient Data Lab Results Last 24 hrs: Laboratory Results - last 24 hr 01/17/21 01/17/21 01/17/21 Range/Units 10:30 10:30 10:30 WBC 9.20 (3.98-10.04) K/mm3 RBC 4.08 (3.98-5.22) M/mm3 Hgb 12.1 (11.2-15.7) gm/dl Hct 34.8 (34.1-44.9) % MCV 85.3 (79.4-94.8) fl MCH 29.7 (25.6-32.2) pg MCHC 34.8 (32.2-35.5) g/dl RDW Std Deviation 40.3 (36.4-46.3) fL Plt Count 146 L (182-369) K/mm3 MPV 10.4 (9.4-12.3) fl Neut % (Auto) 85.3 H (34.0-71.1) % Lymph % (Auto) 4.8 L (19.3-51.7) % [place] % (Auto) 5.3 (4.7-12.5) % Eos % (Auto) 4.5 (0.7-5.8) Baso % (Auto) 0.1 (0.1-1.2) % Neut # (Auto) 7.85 H (1.56-6.13) K/mm3 Lymph # (Auto) 0.44 L (1.18-3.74) K/mm3 [place] # (Auto) 0.49 H (0.24-0.36) K/mm3 Eos # (Auto) 0.41 H (0.04-0.36) K/mm3 Baso # (Auto) 0.01 (0.01-0.08) K/mm3 Manual Slide Review Abnormal smear Sodium 135 L (136-145) mEq/L Potassium 3.1 L (3.5-5.1) mEq/L Chloride 101 (98-107) mEq/L Carbon Dioxide 25 (21-32) mEq/L Anion Gap 12.1 (5-15) BUN 31 H (7-18) mg/dL Creatinine 1.7 H D (0.55-1.02) mg/dL Est Cr Clr Drug Dosing 47.81 mL/min Estimated GFR (MDRD) 34 (>60) mL/min BUN/Creatinine Ratio 18.2 H (14-18) Glucose 142 H (70-99) mg/dL Lactic Acid 1.2 (0.4-2.0) mmol/L Calcium 7.9 L (8.5-10.1) mg/dL Total Bilirubin 0.8 (0.2-1.0) mg/dL AST 38 H (15-37) U/L ALT 70 H (14-59) U/L Alkaline Phosphatase 69 (46-116) U/L Total Protein 5.5 L (6.4-8.2) g/dl Albumin 2.6 L (3.4-5.0) g/dl Globulin 2.9 gm/dL Albumin/Globulin Ratio 0.9 L (1-2) Result Diagrams: 01/17/21 10:30 01/17/21 10:30 Sepsis Event Note - Evaluation Sepsis Screening Result: No Definite Risk - Focused Exam Vital Signs: Vital Signs Temp Pulse Resp BP Pulse Ox 01/17/21 09:37 36.3 C 109 H 16 100/55 L 95 *Q Meaningful Use (ADM) - VTE Risk Assess *Q Each Risk Factor Represents 1 Point: Obesity ( BMI > 25 kg/m2), Sepsis, Other Risk Factor (IV drug use) Total Score 1 Point Risk Factors: 3 Consult PN Assessment/Plan (1) Abscess of left forearm SNOMED Code(s): 15402557019507254 Code(s): L02.414 - CUTANEOUS ABSCESS OF LEFT UPPER LIMB Current Visit: Yes (2) Cellulitis of left forearm SNOMED Code(s): 78661787 Code(s): L03.114 - CELLULITIS OF LEFT UPPER LIMB Current Visit: Yes Problem List Initiated/Reviewed/Updated: Yes Plan: 35 y/o lady with abscess and cellulitis of left arm - plan for incision and drainage. Discussed risk of bleeding, her written consent was obtained - continue IV ab - medical management per primary for sepsis Daily dressing change with exchange of packing and dry dressing. Ella Melgar MD General surgery
--- NOTE | 2021-01-17 20:30 | PCM.PRNOTE ---
- Free Text/Narrative Note: Procedure Report Date of procedure: January 17, 2021 Preoperative diagnosis: [Left arm abscess Postoperative diagnosis: same Procedure: Incision and drainage of left arm abscess Surgeon: Dr. Ella Melgar Anesthesia: Local- 1% lidocaine Estimated blood loss: 5 mL IV fluids: n/a Indication for the procedure: The patient is a 35 y/o lady with a left arm abscess. We discussed incision and drainage with risk of bleeding. Her written consent was obtained. Description of the procedure: The patient's arm was sterilized with chlorhexidine. 1% lidocaine was then injected over the abscess and in a surrounding field block. A 1.5cm incision was then made over the abscess which was drained of purulent material. A small piece of skin was removed to allow for easier packing. The cavity was flushed and packed with 1/4in strip packing. A dry dressing was applied. The patient tolerated the procedure well with no apparent complications. Ella Melgar MD General surgery
[2021-01-17] MEDS: Vancomycin 1 GM, Vancomycin 250 MG in Sodium Chloride 0.9% 250 ML IV SCH (22:04)
[2021-01-18] MEDS: Lactated Ringers 1,000 ML IV SCH (02:47)
[2021-01-18] MEDS: LORazepam 2 MG/ML SDV IVPUSH PRN ×2 (06:58→15:00)
[2021-01-18] MEDS: Heparin Sodium 5,000 Units/ML Vial SUBCUT SCH ×2 (09:04→15:45)
[2021-01-18] MEDS: Vancomycin 1 GM, Vancomycin 250 MG in Sodium Chloride 0.9% 250 ML IV SCH (09:04)
[2021-01-18] MEDS ORDERED: Lidocaine 2% 100 MG/5 ML Syringe ONE (10:06)
--- NOTE | 2021-01-18 11:50 | PCM.PN ---
- General Info Date of Service: 01/18/21 Admission Dx/Problem (Free Text): Admission Diagnosis/Problem Admission Diagnosis/Problem Sepsis Subjective Update: patient was reportedly agitated this AM given ativan and now sleeping She is unable to provide hx She underwent local I&D abscess yesterday evening - Patient Data Vitals - Most Recent: Last Vital Signs Temp 97.2 F 01/18/21 08:00 Pulse 86 01/18/21 08:00 Resp 20 01/18/21 08:01 BP 90/48 L 01/18/21 08:00 Pulse Ox 97 01/18/21 08:00 Weight - Most Recent: 181 lb I&O - Last 24 Hours: Intake & Output 01/17/21 01/18/21 01/18/21 22:59 06:59 14:59 Intake Total 1620 2278 Output Total 550 1650 Balance 1070 628 Lab Results Last 24 Hours: Laboratory Results - last 24 hr 01/17/21 01/17/21 01/17/21 Range/Units 10:30 20:50 23:35 WBC (3.98-10.04) K/mm3 RBC (3.98-5.22) M/mm3 Hgb (11.2-15.7) gm/dl Hct (34.1-44.9) % MCV (79.4-94.8) fl MCH (25.6-32.2) pg MCHC (32.2-35.5) g/dl RDW Std Deviation (36.4-46.3) fL Plt Count (182-369) K/mm3 MPV (9.4-12.3) fl Neut % (Auto) (34.0-71.1) % Lymph % (Auto) (19.3-51.7) % Moore % (Auto) (4.7-12.5) % Eos % (Auto) (0.7-5.8) Baso % (Auto) (0.1-1.2) % Neut # (Auto) (1.56-6.13) K/mm3 Lymph # (Auto) (1.18-3.74) K/mm3 Moore # (Auto) (0.24-0.36) K/mm3 Eos # (Auto) (0.04-0.36) K/mm3 Baso # (Auto) (0.01-0.08) K/mm3 Manual Slide Review Sodium (136-145) mEq/L Potassium (3.5-5.1) mEq/L Chloride (98-107) mEq/L Carbon Dioxide (21-32) mEq/L Anion Gap (5-15) BUN (7-18) mg/dL Creatinine (0.55-1.02) mg/dL Est Cr Clr Drug Dosing mL/min Estimated GFR (MDRD) (>60) mL/min BUN/Creatinine Ratio (14-18) Glucose (70-99) mg/dL Lactic Acid (0.4-2.0) mmol/L Calcium (8.5-10.1) mg/dL Magnesium 1.7 L (1.8-2.4) mg/dL Total Bilirubin (0.2-1.0) mg/dL AST (15-37) U/L ALT (14-59) U/L Alkaline Phosphatase (46-116) U/L Total Protein (6.4-8.2) g/dl Albumin (3.4-5.0) g/dl Globulin gm/dL Albumin/Globulin Ratio (1-2) HCG, Qual Negative (NEGATIVE) Urine Color Yellow (Yellow) Urine Appearance Clear (Clear) Urine pH 6.5 (5.0-8.0) Ur Specific Herscher 1.015 (1.005-1.030) Urine Protein Negative (Negative) Urine Glucose (UA) Negative (Negative) Urine Ketones Negative (Negative) Urine Occult Blood 1+ H (Negative) Urine Nitrite Negative (Negative) Urine Bilirubin Negative (Negative) Urine Urobilinogen 0.2 (0.2-1.0) Ur Leukocyte Esterase Trace H (Negative) Urine RBC 0-5 (0-5) /hpf Urine WBC 0-5 (0-5) /hpf Ur Squamous Epith Cells 0-5 (0-5) /hpf Urine Bacteria Few (FEW) /hpf Urine Mucus Not seen (FEW) /hpf 01/18/21 01/18/21 01/18/21 Range/Units 06:35 06:35 09:47 WBC 6.35 (3.98-10.04) K/mm3 RBC 3.91 L (3.98-5.22) M/mm3 Hgb 11.5 (11.2-15.7) gm/dl Hct 34.6 (34.1-44.9) % MCV 88.5 D (79.4-94.8) fl MCH 29.4 (25.6-32.2) pg MCHC 33.2 (32.2-35.5) g/dl RDW Std Deviation 43.0 (36.4-46.3) fL Plt Count 154 L (182-369) K/mm3 MPV 10.0 (9.4-12.3) fl Neut % (Auto) 69.7 (34.0-71.1) % Lymph % (Auto) 9.3 L (19.3-51.7) % Moore % (Auto) 12.3 (4.7-12.5) % Eos % (Auto) 8.3 H (0.7-5.8) Baso % (Auto) 0.2 (0.1-1.2) % Neut # (Auto) 4.43 (1.56-6.13) K/mm3 Lymph # (Auto) 0.59 L (1.18-3.74) K/mm3 Moore # (Auto) 0.78 H (0.24-0.36) K/mm3 Eos # (Auto) 0.53 H (0.04-0.36) K/mm3 Baso # (Auto) 0.01 (0.01-0.08) K/mm3 Manual Slide Review Abnormal smear Sodium 140 (136-145) mEq/L Potassium 3.9 (3.5-5.1) mEq/L Chloride 106 (98-107) mEq/L Carbon Dioxide 28 (21-32) mEq/L Anion Gap 9.9 (5-15) BUN 13 (7-18) mg/dL Creatinine 1.0 (0.55-1.02) mg/dL Est Cr Clr Drug Dosing 81.28 mL/min Estimated GFR (MDRD) > 60 (>60) mL/min BUN/Creatinine Ratio 13.0 L (14-18) Glucose 125 H (70-99) mg/dL Lactic Acid 0.9 (0.4-2.0) mmol/L Calcium 7.6 L (8.5-10.1) mg/dL Magnesium (1.8-2.4) mg/dL Total Bilirubin 0.4 (0.2-1.0) mg/dL AST 32 (15-37) U/L ALT 59 (14-59) U/L Alkaline Phosphatase 67 (46-116) U/L Total Protein 4.9 L (6.4-8.2) g/dl Albumin 2.2 L (3.4-5.0) g/dl Globulin 2.7 gm/dL Albumin/Globulin Ratio 0.8 L (1-2) HCG, Qual (NEGATIVE) Urine Color (Yellow) Urine Appearance (Clear) Urine pH (5.0-8.0) Ur Specific Herscher (1.005-1.030) Urine Protein (Negative) Urine Glucose (UA) (Negative) Urine Ketones (Negative) Urine Occult Blood (Negative) Urine Nitrite (Negative) Urine Bilirubin (Negative) Urine Urobilinogen (0.2-1.0) Ur Leukocyte Esterase (Negative) Urine RBC (0-5) /hpf Urine WBC (0-5) /hpf Ur Squamous Epith Cells (0-5) /hpf Urine Bacteria (FEW) /hpf Urine Mucus (FEW) /hpf Philipp Results Last 24 Hours: Microbiology 01/17/21 10:30 Aerobic Blood Culture - Preliminary Blood - Venous - Lab Draw NO GROWTH AFTER 1 DAY Anaerobic Blood Culture - Preliminary NO GROWTH AFTER 1 DAY 01/17/21 10:30 Aerobic Blood Culture - Preliminary Blood - Venous NO GROWTH AFTER 1 DAY Anaerobic Blood Culture - Preliminary NO GROWTH AFTER 1 DAY Med Orders - Current: Current Medications Acetaminophen (Acetaminophen 325 Mg Tab) 650 mg PO Q4H PRN PRN Reason: Pain (Mild 1-3)/fever Heparin Sodium (Porcine) (Heparin Sodium 5,000 Units/Ml Vial) 5,000 units SUBCUT Q8H [facility] Last Admin: 01/18/21 09:04 Dose: 5,000 units Documented by: Hydromorphone HCl (Hydromorphone 0.5 Mg/0.5 Ml Syringe) 0.5 mg IVPUSH Q2H PRN PRN Reason: Pain (severe 7-10) Last Admin: 01/17/21 17:23 Dose: 0.5 mg Documented by: Vancomycin HCl 1 gm/Vancomycin HCl 250 mg/ Sodium Chloride 250 mls @ 166.667 mls/hr IV Q12H [facility] Last Admin: 01/18/21 09:04 Dose: 166.667 mls/hr Documented by: Lorazepam (Lorazepam 2 Mg/Ml Sdv) 0.5 mg IVPUSH Q2H PRN PRN Reason: Other Last Admin: 01/18/21 06:58 Dose: 0.5 mg Documented by: Ondansetron HCl (Ondansetron 4 Mg Tab.Dis) 4 mg PO Q4H PRN PRN Reason: nausea, able to take PO Ondansetron HCl (Ondansetron 4 Mg/2 Ml Sdv) 4 mg IV Q4H PRN PRN Reason: Nausea/Vomiting Oxycodone HCl (Oxycodone 5 Mg Tab) 5 mg PO Q4H PRN PRN Reason: Pain (moderate 4-6) Last Admin: 01/17/21 22:38 Dose: 5 mg Documented by: Sodium Chloride (Sodium Chloride 0.9% 10 Ml Syringe) 10 ml FLUSH ASDIRECTED PRN PRN Reason: Keep Vein Open Last Admin: 01/17/21 10:45 Dose: 10 ml Documented by: Vancomycin HCl (Pharmacy To Dose - Vancomycin) 1 dose .XX ASDIRECTED PRN PRN Reason: RX TO DOSE VANCO Discontinued Medications Haloperidol Lactate (Haloperidol Lactate 5 Mg/Ml Sdv) 2.5 mg IVPUSH ONETIME ONE Stop: 01/17/21 10:02 Last Admin: 01/17/21 10:42 Dose: 2.5 mg Documented by: Heparin Sodium (Porcine) (Heparin Sodium 5,000 Units/Ml Vial) 5,000 units SUBCUT Q8H [facility] Last Admin: 01/17/21 15:58 Dose: Not Given Documented by: Sodium Chloride (Normal Saline) 1,000 mls @ 1,000 mls/hr IV ONETIME ONE Stop: 01/17/21 11:00 Last Admin: 01/17/21 10:37 Dose: 1,000 mls/hr Documented by: Vancomycin HCl 1 gm/Vancomycin HCl 500 mg/ Sodium Chloride 500 mls @ 250 mls/hr IV ONETIME ONE Stop: 01/17/21 12:29 Last Admin: 01/17/21 10:48 Dose: 250 mls/hr Documented by: Sodium Chloride (Normal Saline) 1,000 mls @ 1,000 mls/hr IV ONETIME ONE Stop: 01/17/21 12:26 Last Admin: 01/17/21 15:30 Dose: Not Given Documented by: Lactated Ringer's (Ringers, Lactated) 1,000 mls @ 125 mls/hr IV ASDIRECTED [facility] Last Admin: 01/18/21 02:47 Dose: 125 mls/hr Documented by: Sodium Chloride (Normal Saline) 1,000 mls @ 1,000 mls/hr IV ONETIME ONE Stop: 01/17/21 16:14 Last Admin: 01/17/21 15:05 Dose: 1,000 mls/hr Documented by: Potassium Chloride 10 meq/ (Premix) 100 mls @ 100 mls/hr IV Q1H [facility] Stop: 01/17/21 20:14 Potassium Chloride 10 meq/ (Premix) 100 mls @ 100 mls/hr IV Q1H [facility] Stop: 01/17/21 20:14 Last Admin: 01/17/21 17:56 Dose: Not Given Documented by: Lidocaine HCl (Lidocaine 1% 10 Ml Mdv) Confirm Administered Dose 10 ml .ROUTE .STK-MED ONE Stop: 01/17/21 19:51 Last Admin: 01/17/21 22:04 Dose: 10 ml Documented by: Lidocaine HCl (Lidocaine 2% 100 Mg/5 Ml Syringe) Confirm Administered Dose 100 mg .ROUTE .STK-MED ONE Stop: 01/18/21 10:07 Lidocaine/Epinephrine (Lidocaine 1% With Epinephrine 1:100,000 10 Ml Mdv) Confirm Administered Dose 10 ml .ROUTE .STK-MED ONE Stop: 01/17/21 19:45 Last Admin: 01/17/21 22:02 Dose: Not Given Documented by: Lidocaine/Epinephrine (Lidocaine 1% With Epinephrine 1:100,000 10 Ml Mdv) Confirm Administered Dose 10 ml .ROUTE .STK-MED ONE Stop: 01/17/21 19:46 Last Admin: 01/17/21 22:02 Dose: Not Given Documented by: Lorazepam (Lorazepam 2 Mg/Ml Sdv) 1 mg IVPUSH ONETIME ONE Stop: 01/17/21 10:02 Last Admin: 01/17/21 10:38 Dose: 1 mg Documented by: Potassium Chloride (Potassium Chloride 20 Meq Tab.Er) 40 meq PO ONETIME ONE Stop: 01/17/21 16:46 Last Admin: 01/17/21 17:14 Dose: 40 meq Documented by: - Exam Physical Findings Comments:: Gen: sleeping HEENT: NCAT MMM Neck: Supple CV: RRR normal s1 s2 Lungs: CTAB abd: Soft, nt, nd Psych: unable to assess - Patient Data Lab Results Last 24 hrs: Laboratory Results - last 24 hr 01/17/21 01/17/21 01/17/21 Range/Units 10:30 20:50 23:35 WBC (3.98-10.04) K/mm3 RBC (3.98-5.22) M/mm3 Hgb (11.2-15.7) gm/dl Hct (34.1-44.9) % MCV (79.4-94.8) fl MCH (25.6-32.2) pg MCHC (32.2-35.5) g/dl RDW Std Deviation (36.4-46.3) fL Plt Count (182-369) K/mm3 MPV (9.4-12.3) fl Neut % (Auto) (34.0-71.1) % Lymph % (Auto) (19.3-51.7) % Moore % (Auto) (4.7-12.5) % Eos % (Auto) (0.7-5.8) Baso % (Auto) (0.1-1.2) % Neut # (Auto) (1.56-6.13) K/mm3 Lymph # (Auto) (1.18-3.74) K/mm3 Moore # (Auto) (0.24-0.36) K/mm3 Eos # (Auto) (0.04-0.36) K/mm3 Baso # (Auto) (0.01-0.08) K/mm3 Manual Slide Review Sodium (136-145) mEq/L Potassium (3.5-5.1) mEq/L Chloride (98-107) mEq/L Carbon Dioxide (21-32) mEq/L Anion Gap (5-15) BUN (7-18) mg/dL Creatinine (0.55-1.02) mg/dL Est Cr Clr Drug Dosing mL/min Estimated GFR (MDRD) (>60) mL/min BUN/Creatinine Ratio (14-18) Glucose (70-99) mg/dL Lactic Acid (0.4-2.0) mmol/L Calcium (8.5-10.1) mg/dL Magnesium 1.7 L (1.8-2.4) mg/dL Total Bilirubin (0.2-1.0) mg/dL AST (15-37) U/L ALT (14-59) U/L Alkaline Phosphatase (46-116) U/L Total Protein (6.4-8.2) g/dl Albumin (3.4-5.0) g/dl Globulin gm/dL Albumin/Globulin Ratio (1-2) HCG, Qual Negative (NEGATIVE) Urine Color Yellow (Yellow) Urine Appearance Clear (Clear) Urine pH 6.5 (5.0-8.0) Ur Specific Herscher 1.015 (1.005-1.030) Urine Protein Negative (Negative) Urine Glucose (UA) Negative (Negative) Urine Ketones Negative (Negative) Urine Occult Blood 1+ H (Negative) Urine Nitrite Negative (Negative) Urine Bilirubin Negative (Negative) Urine Urobilinogen 0.2 (0.2-1.0) Ur Leukocyte Esterase Trace H (Negative) Urine RBC 0-5 (0-5) /hpf Urine WBC 0-5 (0-5) /hpf Ur Squamous Epith Cells 0-5 (0-5) /hpf Urine Bacteria Few (FEW) /hpf Urine Mucus Not seen (FEW) /hpf 01/18/21 01/18/21 01/18/21 Range/Units 06:35 06:35 09:47 WBC 6.35 (3.98-10.04) K/mm3 RBC 3.91 L (3.98-5.22) M/mm3 Hgb 11.5 (11.2-15.7) gm/dl Hct 34.6 (34.1-44.9) % MCV 88.5 D (79.4-94.8) fl MCH 29.4 (25.6-32.2) pg MCHC 33.2 (32.2-35.5) g/dl RDW Std Deviation 43.0 (36.4-46.3) fL Plt Count 154 L (182-369) K/mm3 MPV 10.0 (9.4-12.3) fl Neut % (Auto) 69.7 (34.0-71.1) % Lymph % (Auto) 9.3 L (19.3-51.7) % Moore % (Auto) 12.3 (4.7-12.5) % Eos % (Auto) 8.3 H (0.7-5.8) Baso % (Auto) 0.2 (0.1-1.2) % Neut # (Auto) 4.43 (1.56-6.13) K/mm3 Lymph # (Auto) 0.59 L (1.18-3.74) K/mm3 Moore # (Auto) 0.78 H (0.24-0.36) K/mm3 Eos # (Auto) 0.53 H (0.04-0.36) K/mm3 Baso # (Auto) 0.01 (0.01-0.08) K/mm3 Manual Slide Review Abnormal smear Sodium 140 (136-145) mEq/L Potassium 3.9 (3.5-5.1) mEq/L Chloride 106 (98-107) mEq/L Carbon Dioxide 28 (21-32) mEq/L Anion Gap 9.9 (5-15) BUN 13 (7-18) mg/dL Creatinine 1.0 (0.55-1.02) mg/dL Est Cr Clr Drug Dosing 81.28 mL/min Estimated GFR (MDRD) > 60 (>60) mL/min BUN/Creatinine Ratio 13.0 L (14-18) Glucose 125 H (70-99) mg/dL Lactic Acid 0.9 (0.4-2.0) mmol/L Calcium 7.6 L (8.5-10.1) mg/dL Magnesium (1.8-2.4) mg/dL Total Bilirubin 0.4 (0.2-1.0) mg/dL AST 32 (15-37) U/L ALT 59 (14-59) U/L Alkaline Phosphatase 67 (46-116) U/L Total Protein 4.9 L (6.4-8.2) g/dl Albumin 2.2 L (3.4-5.0) g/dl Globulin 2.7 gm/dL Albumin/Globulin Ratio 0.8 L (1-2) HCG, Qual (NEGATIVE) Urine Color (Yellow) Urine Appearance (Clear) Urine pH (5.0-8.0) Ur Specific Herscher (1.005-1.030) Urine Protein (Negative) Urine Glucose (UA) (Negative) Urine Ketones (Negative) Urine Occult Blood (Negative) Urine Nitrite (Negative) Urine Bilirubin (Negative) Urine Urobilinogen (0.2-1.0) Ur Leukocyte Esterase (Negative) Urine RBC (0-5) /hpf Urine WBC (0-5) /hpf Ur Squamous Epith Cells (0-5) /hpf Urine Bacteria (FEW) /hpf Urine Mucus (FEW) /hpf Result Diagrams: 01/18/21 06:35 01/18/21 06:35 Philipp Results Last 24 hrs: Microbiology 01/17/21 10:30 Aerobic Blood Culture - Preliminary Blood - Venous - Lab Draw NO GROWTH AFTER 1 DAY Anaerobic Blood Culture - Preliminary NO GROWTH AFTER 1 DAY 01/17/21 10:30 Aerobic Blood Culture - Preliminary Blood - Venous NO GROWTH AFTER 1 DAY Anaerobic Blood Culture - Preliminary NO GROWTH AFTER 1 DAY Sepsis Event Note - Evaluation Sepsis Screening Result: No Definite Risk - Focused Exam Vital Signs: Vital Signs Temp Pulse Resp BP BP Pulse Ox 01/18/21 08:01 20 01/18/21 08:00 97.2 F 86 18 90/48 L 97 01/18/21 07:59 20 01/18/21 07:18 21 H 99/49 L 01/18/21 07:17 21 H 01/18/21 07:15 18 01/18/21 06:00 17 01/18/21 05:00 21 H 01/18/21 04:00 89 19 107/57 L 97 01/18/21 03:00 21 H 01/18/21 02:01 29 H 01/18/21 02:00 27 H 107/57 L 01/18/21 01:59 27 H 01/18/21 01:01 15 01/18/21 01:00 16 100/57 L 01/18/21 00:59 15 01/18/21 00:22 18 98/53 L 01/18/21 00:21 20 01/18/21 00:12 18 01/18/21 00:00 97.2 F 92 16 98/53 L 98 - Problem List & Annotations (1) Abscess of left forearm SNOMED Code(s): 90162502156000068 Code(s): L02.414 - CUTANEOUS ABSCESS OF LEFT UPPER LIMB Status: Acute Current Visit: Yes - Problem List Review Problem List Initiated/Reviewed/Updated: Yes - My Orders Last 24 Hours: My Active Orders 01/17/21 Lunch Regular Diet [DIET] 01/17/21 11:43 Oxygen Therapy [RC] PRN VTE/DVT Education [RC] Vital Signs [RC] Q4HR Acetaminophen [TylenoL] 650 mg PO Q4H PRN HYDROmorphone [Dilaudid] 0.5 mg IVPUSH Q2H PRN Ondansetron [Zofran ODT] 4 mg PO Q4H PRN Ondansetron [Zofran] 4 mg IV Q4H PRN oxyCODONE 5 mg PO Q4H PRN Resuscitation Status Routine 01/17/21 11:44 Intake and Output [RC] 04,16 01/17/21 13:47 Patient Status [ADT] Routine 01/17/21 14:30 Pharmacy to Dose - Vancomycin 1 dose .XX ASDIRECTED PRN 01/17/21 14:32 Consult to Physician [CONS] Routine 01/17/21 14:33 Notify Provider Consults [RC] ASDIRECTED 01/17/21 15:00 Heparin Sodium 5,000 units SUBCUT Q8H 01/17/21 16:27 Add On Test [COMM] Routine 01/17/21 16:33 Add On Test [COMM] Routine 01/17/21 16:38 LORazepam [Ativan] 0.5 mg IVPUSH Q2H PRN 01/17/21 20:50 CULTURE URINE [MREF] Stat 01/17/21 22:00 Vancomycin 1 gm Vancomycin 250 mg Sodium Chloride 0.9% [Normal Saline] 250 ml IV Q12H 01/18/21 08:08 GRAM STAIN [RM] Routine MISCELLANEOUS CULT [MREF] Routine 01/18/21 09:35 POCTesting [POC Labs] [RC] ASDIRECTED 01/18/21 12:00 PICC Line Insertion [CR] Routine 01/19/21 06:00 CBC WITH AUTO DIFF [HEME] DAILY CMP [COMPREHENSIVE METABOLIC PN,CMP] [CHEM] DAILY 01/19/21 09:00 VANCOMYCIN TROUGH [CHEM] Timed 01/20/21 06:00 CBC WITH AUTO DIFF [HEME] DAILY CMP [COMPREHENSIVE METABOLIC PN,CMP] [CHEM] DAILY 01/21/21 06:00 CBC WITH AUTO DIFF [HEME] DAILY CMP [COMPREHENSIVE METABOLIC PN,CMP] [CHEM] DAILY 01/22/21 06:00 CBC WITH AUTO DIFF [HEME] DAILY CMP [COMPREHENSIVE METABOLIC PN,CMP] [CHEM] DAILY - Plan Plan:: Assessment: This is 35F presenting with sepsis secondary to left upper extremity cellulitis 1. Mild early Sepsis/LUE cellulitis with abscess, s/p I&D on 01/17; sepsis has resolved 2. Acute kidney injury; likely pre-renal 3. Mild hypovolemic hyponatremia 135 4. Hypokalemia; potassium 3.1 on admission 5. Mild thrombocytopenia 6. Transaminitis 7. Hx of methamphetamine use 8. Metabolic encephalopathy 9. agitated delirium/psychosis 10. Suicidal ideation Plan -continue vanco; pharm to dose -UE US completed -Gen surgical consulted for I&D; I&D completed on 01/17 -IVF discontinued -electrolyte replacement -echo to evaluate for possible endocarditis completed; results pending -UA completed -PICC line placement today due to poor veins/difficult IV access The patient was reassessed this afternoon with RN and [employer]. She expresses active suicidal ideation due to personal family stressors. She continues to have agitated delirium and likely substance induced psychosis. A 24 hour medical hold was initiated, The patient became combative and attempted to leave hospital. Local PD notified. Due to ongoing psychiatric needs and limited local resources it was determined by myself and care team that she would benefit from psychiatric consultation. However, due to ongoing need for IV antibiotics for treatment of cellulitis and abscess of forearm she has been accepted to Hospital Medicine service at [facility] in [place] with anticipated inpatient psychiatry consultation. Code-Full code DVT ppx-heparin subq Dispo-DC to home 3-4 days pending culture data
--- NOTE | 2021-01-18 12:57 | CR ---
Chest: Portable view of the chest was obtained. Comparison: Prior chest x-ray of 01/17/21. Lung markings are diffusely increased on both sides of the chest. Uncertain if this relates to prominence in portable technique or represents a real abnormality. Right-sided PICC line is seen. Tip lies within the superior vena cava in satisfactory position. Heart size and mediastinum are normal. Impression: 1. Diffuse increased lung markings as described above. 2. Satisfactory position of PICC line with tip being within the superior vena cava. Diagnostic code #3
--- NOTE | 2021-01-18 14:05 | PCM.SN.2 ---
- Free Text/Narrative Note: Anesthesia Note for PICC Line Placement Time Out: 1030 Start: 1030 Stop: 1300 Ordered received for PICC line placement for patient with sepsis in need of antibiotic therapy, and also access for blood draws. Chart and allergies reviewed. Consent obtained, with risk/benefits discussed. Under US guidance after numerous attempts, 20g long angio placed to right basilic vein with good blood return and ability to flush easily with NS noted. PICC line placement procedure continued: Time Out done, and procedure performed with sterile gown, gloves, drapes noted. Area of 20g angio cleansed thoroughly with 3 chloroprep's, under sterile technique; 4 tongan Groshong NXT ClearVue catheter (REF: [id number], LOT:[id number], Exp: 2021-09-16) secured at 39cm, with catheter placement verified by portable CXR. Excellent blood return noted and catheter flushed with 20ml's of normal saline. Dressing applied: mastisol, steri-strips, and CHG tegaderm placed. Patient tolerated procedure well with verbal reassurance and encouragement given. Sera EDDY
--- NOTE | 2021-01-18 15:24 | PCM.DCSUM1 ---
Discharge Summary - Hospital Course HPI Initial Comments: This is a 35F with limited known past medical history presenting for evaluation of left arm pain. The patient was sedated at time of evaluation with ativan and haldol and unable to provide history. Hx obtained from chart review. The patient has history of methamphetamine use and possible polysubstance abuse. She originally presented to ED yesterday for evaluation of fever/cellulitis of forearm but left AMA. She presented back to ED this morning. She was started on IVF and vancomycin. She was noted to be agitated and given ativan and haldol. Notable labs included Cr 1.7. She was given IVF and antibiotics and admitted for further evaluation Brief History: Assessment: This is 35F presenting with mild sepsis (reported fever, end organ damage, tachycardia, hypotension) secondary to left upper extremity cellulitis and Abscess. 1. Mild early Sepsis/LUE cellulitis with abscess, s/p I&D on 01/17; sepsis has resolved. 2. Acute kidney injury; likely pre-renal; resolved. 3. Mild hypovolemic hyponatremia 135; resolved. 4. [place] lemia; potassium 3.1 on admission; resolved. 5. Mild thrombocytopenia. 6. Transaminitis. 7. Hx of methamphetamine use. 8. Metabolic encephalopathy. 9. agitated delirium/psychosis. 10. Suicidal ideation. Plan. -continue vanco; pharm to dose. -UE US completed. -Gen surgical consulted for I&D; I&D completed on 01/17; cultures pending. -IVF discontinued. -electrolyte replaced as need. -echo to evaluate for possible endocarditis completed; results pending. -UA completed. -PICC line placement today due to poor veins/difficult IV access. The patient was reassessed this afternoon with RN and Image Editor. She expresses active suicidal ideation due to personal family stressors. She continues to have agitated delirium and likely substance induced psychosis. A 24 hour medical hold was initiated, The patient became combative and attempted to leave hospital AMA. Local PD notified. Due to ongoing psychiatric needs and limited local resources it was determined by myself and care team that she would benefit from inpatient psychiatric consultation. However, due to ongoing need for IV antibiotics for treatment of cellulitis and abscess of forearm she needs to be on medical unit. She has been accepted to Hospital Medicine service at [facility] in [place] with anticipated inpatient psychiatry consultation. Accepting physician Dr. Spear Diagnosis: Stroke: No - Discharge Data Discharge Date: 01/18/21 ([facility]) Discharge Disposition: Admitted As Inpatient 65 Condition: Good - Referral to Home Health Primary Care Physician: PCP None - Discharge Diagnosis/Problem(s) (1) Abscess of left forearm SNOMED Code(s): 17809581226383181 ICD Code: L02.414 - CUTANEOUS ABSCESS OF LEFT UPPER LIMB Status: Acute Current Visit: Yes - Patient Summary/Data Consults: Consultations 01/17/21 14:32 Consult to Physician [CONS] Routine 01/18/21 13:12 Consult to Physician [CONS] Routine - Patient Instructions Diet: Regular Diet as Tolerated Activity: As Tolerated Driving: Do Not Drive Notify Provider of: Fever - Discharge Plan *PRESCRIPTION DRUG MONITORING PROGRAM REVIEWED*: Not Applicable *COPY OF PRESCRIPTION DRUG MONITORING REPORT IN PATIENT [place]ATT: Not Applicable Tobacco Cessation Medication: Unable to address due to Cognitive Impairment. Home Medications: Home Meds Pharmacy to Dose - Vancomycin 1 dose .XX ASDIRECTED PRN each 01/18/21 [Rx] Vancomycin 1 gm IV Q12H sdv 01/18/21 [Rx] Vancomycin 250 mg IV Q12H sdv 01/18/21 [Rx] Oxygen Therapy Mode: Room Air Patient Handouts: Cellulitis, Adult, [id number], Incision and Drainage, Care After, Steps to Quit Smoking, Sepsis, Self Care, Adult Forms: ED Department Discharge Referrals: Demi Whiting NP [Ordering Only Provider] - 01/25/21 1:15 pm (come 15 minutes prior to the appointment to register.) - Discharge Summary/Plan Comment DC Time >30 min.: Yes Discharge Summary/Plan Comment: Transfer to [facility] - General Info Date of Service: 01/18/21 Admission Dx/Problem (Free Text: Admission Diagnosis/Problem Admission Diagnosis/Problem Sepsis Cellulitis and abscess left forearm Subjective Update: patient was reportedly agitated this AM given ativan and now sleeping She underwent local I&D abscess yesterday evening Functional Status: Reports: Pain Controlled - Review of Systems Psychiatric: Reports: Mood Lability, Suicidal Ideation Systems Review Comment: negative except as noted in hpi - Patient Data Vitals - Most Recent: Last Vital Signs Temp 97.0 F 01/18/21 12:00 Pulse 96 01/18/21 12:00 Resp 20 01/18/21 12:00 BP 119/65 01/18/21 12:00 Pulse Ox 100 01/18/21 12:00 Weight - Most Recent: 181 lb I&O - Last 24 hours: Intake & Output 01/18/21 01/18/21 01/18/21 06:59 14:59 22:59 Intake Total 2278 Output Total 1650 Balance 628 Lab Results - Last 24 hrs: Laboratory Results - last 24 hr 01/17/21 01/17/21 01/17/21 Range/Units 10:30 20:50 23:35 WBC (3.98-10.04) K/mm3 RBC (3.98-5.22) M/mm3 Hgb (11.2-15.7) gm/dl Hct (34.1-44.9) % MCV (79.4-94.8) fl MCH (25.6-32.2) pg MCHC (32.2-35.5) g/dl RDW Std Deviation (36.4-46.3) fL Plt Count (182-369) K/mm3 MPV (9.4-12.3) fl Neut % (Auto) (34.0-71.1) % Lymph % (Auto) (19.3-51.7) % Love % (Auto) (4.7-12.5) % Eos % (Auto) (0.7-5.8) Baso % (Auto) (0.1-1.2) % Neut # (Auto) (1.56-6.13) K/mm3 Lymph # (Auto) (1.18-3.74) K/mm3 Love # (Auto) (0.24-0.36) K/mm3 Eos # (Auto) (0.04-0.36) K/mm3 Baso # (Auto) (0.01-0.08) K/mm3 Manual Slide Review Sodium (136-145) mEq/L Potassium (3.5-5.1) mEq/L Chloride (98-107) mEq/L Carbon Dioxide (21-32) mEq/L Anion Gap (5-15) BUN (7-18) mg/dL Creatinine (0.55-1.02) mg/dL Est Cr Clr Drug Dosing mL/min Estimated GFR (MDRD) (>60) mL/min BUN/Creatinine Ratio (14-18) Glucose (70-99) mg/dL Lactic Acid (0.4-2.0) mmol/L Calcium (8.5-10.1) mg/dL Magnesium 1.7 L (1.8-2.4) mg/dL Total Bilirubin (0.2-1.0) mg/dL AST (15-37) U/L ALT (14-59) U/L Alkaline Phosphatase (46-116) U/L Total Protein (6.4-8.2) g/dl Albumin (3.4-5.0) g/dl Globulin gm/dL Albumin/Globulin Ratio (1-2) HCG, Qual Negative (NEGATIVE) Urine Color Yellow (Yellow) Urine Appearance Clear (Clear) Urine pH 6.5 (5.0-8.0) Ur Specific [place] 1.015 (1.005-1.030) Urine Protein Negative (Negative) Urine Glucose (UA) Negative (Negative) Urine Ketones Negative (Negative) Urine Occult Blood 1+ H (Negative) Urine Nitrite Negative (Negative) Urine Bilirubin Negative (Negative) Urine Urobilinogen 0.2 (0.2-1.0) Ur Leukocyte Esterase Trace H (Negative) Urine RBC 0-5 (0-5) /hpf Urine WBC 0-5 (0-5) /hpf Ur Squamous Epith Cells 0-5 (0-5) /hpf Urine Bacteria Few (FEW) /hpf Urine Mucus Not seen (FEW) /hpf 01/18/21 01/18/21 01/18/21 Range/Units 06:35 06:35 09:47 WBC 6.35 (3.98-10.04) K/mm3 RBC 3.91 L (3.98-5.22) M/mm3 Hgb 11.5 (11.2-15.7) gm/dl Hct 34.6 (34.1-44.9) % MCV 88.5 D (79.4-94.8) fl MCH 29.4 (25.6-32.2) pg MCHC 33.2 (32.2-35.5) g/dl RDW Std Deviation 43.0 (36.4-46.3) fL Plt Count 154 L (182-369) K/mm3 MPV 10.0 (9.4-12.3) fl Neut % (Auto) 69.7 (34.0-71.1) % Lymph % (Auto) 9.3 L (19.3-51.7) % Love % (Auto) 12.3 (4.7-12.5) % Eos % (Auto) 8.3 H (0.7-5.8) Baso % (Auto) 0.2 (0.1-1.2) % Neut # (Auto) 4.43 (1.56-6.13) K/mm3 Lymph # (Auto) 0.59 L (1.18-3.74) K/mm3 Love # (Auto) 0.78 H (0.24-0.36) K/mm3 Eos # (Auto) 0.53 H (0.04-0.36) K/mm3 Baso # (Auto) 0.01 (0.01-0.08) K/mm3 Manual Slide Review Abnormal smear Sodium 140 (136-145) mEq/L Potassium 3.9 (3.5-5.1) mEq/L Chloride 106 (98-107) mEq/L Carbon Dioxide 28 (21-32) mEq/L Anion Gap 9.9 (5-15) BUN 13 (7-18) mg/dL Creatinine 1.0 (0.55-1.02) mg/dL Est Cr Clr Drug Dosing 81.28 mL/min Estimated GFR (MDRD) > 60 (>60) mL/min BUN/Creatinine Ratio 13.0 L (14-18) Glucose 125 H (70-99) mg/dL Lactic Acid 0.9 (0.4-2.0) mmol/L Calcium 7.6 L (8.5-10.1) mg/dL Magnesium (1.8-2.4) mg/dL Total Bilirubin 0.4 (0.2-1.0) mg/dL AST 32 (15-37) U/L ALT 59 (14-59) U/L Alkaline Phosphatase 67 (46-116) U/L Total Protein 4.9 L (6.4-8.2) g/dl Albumin 2.2 L (3.4-5.0) g/dl Globulin 2.7 gm/dL Albumin/Globulin Ratio 0.8 L (1-2) HCG, Qual (NEGATIVE) Urine Color (Yellow) Urine Appearance (Clear) Urine pH (5.0-8.0) Ur Specific [place] (1.005-1.030) Urine Protein (Negative) Urine Glucose (UA) (Negative) Urine Ketones (Negative) Urine Occult Blood (Negative) Urine Nitrite (Negative) Urine Bilirubin (Negative) Urine Urobilinogen (0.2-1.0) Ur Leukocyte Esterase (Negative) Urine RBC (0-5) /hpf Urine WBC (0-5) /hpf Ur Squamous Epith Cells (0-5) /hpf Urine Bacteria (FEW) /hpf Urine Mucus (FEW) /hpf GLADIS Results - Last 24 hrs: Microbiology 01/17/21 10:30 Aerobic Blood Culture - Preliminary Blood - Venous - Lab Draw NO GROWTH AFTER 1 DAY Anaerobic Blood Culture - Preliminary NO GROWTH AFTER 1 DAY 01/17/21 10:30 Aerobic Blood Culture - Preliminary Blood - Venous NO GROWTH AFTER 1 DAY Anaerobic Blood Culture - Preliminary NO GROWTH AFTER 1 DAY Med Orders - Current: Current Medications Acetaminophen (Acetaminophen 325 Mg Tab) 650 mg PO Q4H PRN PRN Reason: Pain (Mild 1-3)/fever Heparin Sodium (Porcine) (Heparin Sodium 5,000 Units/Ml Vial) 5,000 units SUBCUT Q8H [facility] Last Admin: 01/18/21 09:04 Dose: 5,000 units Documented by: Hydromorphone HCl (Hydromorphone 0.5 Mg/0.5 Ml Syringe) 0.5 mg IVPUSH Q2H PRN PRN Reason: Pain (severe 7-10) Last Admin: 01/17/21 17:23 Dose: 0.5 mg Documented by: Vancomycin HCl 1 gm/Vancomycin HCl 250 mg/ Sodium Chloride 250 mls @ 166.667 mls/hr IV Q12H [facility] Last Admin: 01/18/21 09:04 Dose: 166.667 mls/hr Documented by: Lorazepam (Lorazepam 2 Mg/Ml Sdv) 0.5 mg IVPUSH Q2H PRN PRN Reason: Other Last Admin: 01/18/21 15:00 Dose: 0.5 mg Documented by: Ondansetron HCl (Ondansetron 4 Mg Tab.Dis) 4 mg PO Q4H PRN PRN Reason: nausea, able to take PO Ondansetron HCl (Ondansetron 4 Mg/2 Ml Sdv) 4 mg IV Q4H PRN PRN Reason: Nausea/Vomiting Oxycodone HCl (Oxycodone 5 Mg Tab) 5 mg PO Q4H PRN PRN Reason: Pain (moderate 4-6) Last Admin: 01/17/21 22:38 Dose: 5 mg Documented by: Sodium Chloride (Sodium Chloride 0.9% 10 Ml Syringe) 10 ml FLUSH ASDIRECTED PRN PRN Reason: Keep Vein Open Last Admin: 01/17/21 10:45 Dose: 10 ml Documented by: Vancomycin HCl (Pharmacy To Dose - Vancomycin) 1 dose .XX ASDIRECTED PRN PRN Reason: RX TO DOSE VANCO Discontinued Medications Haloperidol Lactate (Haloperidol Lactate 5 Mg/Ml Sdv) 2.5 mg IVPUSH ONETIME ONE Stop: 01/17/21 10:02 Last Admin: 01/17/21 10:42 Dose: 2.5 mg Documented by: Heparin Sodium (Porcine) (Heparin Sodium 5,000 Units/Ml Vial) 5,000 units SUBCUT Q8H [facility] Last Admin: 01/17/21 15:58 Dose: Not Given Documented by: Sodium Chloride (Normal Saline) 1,000 mls @ 1,000 mls/hr IV ONETIME ONE Stop: 01/17/21 11:00 Last Admin: 01/17/21 10:37 Dose: 1,000 mls/hr Documented by: Vancomycin HCl 1 gm/Vancomycin HCl 500 mg/ Sodium Chloride 500 mls @ 250 mls/hr IV ONETIME ONE Stop: 01/17/21 12:29 Last Admin: 01/17/21 10:48 Dose: 250 mls/hr Documented by: Sodium Chloride (Normal Saline) 1,000 mls @ 1,000 mls/hr IV ONETIME ONE Stop: 01/17/21 12:26 Last Admin: 01/17/21 15:30 Dose: Not Given Documented by: Lactated Ringer's (Ringers, Lactated) 1,000 mls @ 125 mls/hr IV ASDIRECTED [facility] Last Admin: 01/18/21 02:47 Dose: 125 mls/hr Documented by: Sodium Chloride (Normal Saline) 1,000 mls @ 1,000 mls/hr IV ONETIME ONE Stop: 01/17/21 16:14 Last Admin: 01/17/21 15:05 Dose: 1,000 mls/hr Documented by: Potassium Chloride 10 meq/ (Premix) 100 mls @ 100 mls/hr IV Q1H PAULY Stop: 01/17/21 20:14 Potassium Chloride 10 meq/ (Premix) 100 mls @ 100 mls/hr IV Q1H PAULY Stop: 01/17/21 20:14 Last Admin: 01/17/21 17:56 Dose: Not Given Documented by: Lidocaine HCl (Lidocaine 1% 10 Ml Mdv) Confirm Administered Dose 10 ml .ROUTE .STK-MED ONE Stop: 01/17/21 19:51 Last Admin: 01/17/21 22:04 Dose: 10 ml Documented by: Lidocaine HCl (Lidocaine 2% 100 Mg/5 Ml Syringe) Confirm Administered Dose 100 mg .ROUTE .STK-MED ONE Stop: 01/18/21 10:07 Lidocaine/Epinephrine (Lidocaine 1% With Epinephrine 1:100,000 10 Ml Mdv) Confirm Administered Dose 10 ml .ROUTE .STK-MED ONE Stop: 01/17/21 19:45 Last Admin: 01/17/21 22:02 Dose: Not Given Documented by: Lidocaine/Epinephrine (Lidocaine 1% With Epinephrine 1:100,000 10 Ml Mdv) Confirm Administered Dose 10 ml .ROUTE .STK-MED ONE Stop: 01/17/21 19:46 Last Admin: 01/17/21 22:02 Dose: Not Given Documented by: Lorazepam (Lorazepam 2 Mg/Ml Sdv) 1 mg IVPUSH ONETIME ONE Stop: 01/17/21 10:02 Last Admin: 01/17/21 10:38 Dose: 1 mg Documented by: Potassium Chloride (Potassium Chloride 20 Meq Tab.Er) 40 meq PO ONETIME ONE Stop: 01/17/21 16:46 Last Admin: 01/17/21 17:14 Dose: 40 meq Documented by: - Exam Quality Assessment: Reports: Central Line/PICC Physical Findings Comments:: Gen: Agitated, crying HEENT: NCAT EOMI MMM CV: RRR normal s1 s2 Lungs: CTAB Abd: Soft, nt, nd Neuro:AOX3, CN intact Psych: agitated, poor insight Skin: erythema of left upper extremity forearm, mild blood discharge noted on bandage of forerm Lines: PICC Discharge Operative/Procedures - Procedures Performed Operations/Procedure Comment: Procedures I&D Left forearm abscess PICC line placement due to poor IV access *Q Meaningful Use (DIS) - VTE *Q VTE Criteria *Q: Not applicable
[2021-01-18] MEDS ORDERED: OLANZapine 10 MG Vial IM ONE (15:31)
[2021-01-18] MEDS ORDERED: Nicotine 21 MG/24 Hr Patch TRDERM ONE (15:35)
== END 2021-01-18 16:40 | disposition critical access hospital (66) | DRG 853 ==
LOC: JD.ED 09:21 → JD.ICU 11:43
PROVIDERS: ADMIT Hospitalist; ATTEND Hospitalist
PROC: 0J9H0ZZ Drainage of Left Lower Arm Subcutaneous Tissue and Fascia, Open Approach (ICD-10-PCS; principal; 2021-01-17)
PROC: 02HV33Z Insertion of Infusion Device into Superior Vena Cava, Percutaneous Approach (ICD-10-PCS; 2021-01-18)
DX: A41.9 Sepsis, unspecified organism (principal); G93.41 Metabolic encephalopathy; L02.414 Cutaneous abscess of left upper limb; L03.114 Cellulitis of left upper limb; E87.1 Hypo-osmolality and hyponatremia; R45.851 Suicidal ideations; N17.9 Acute kidney failure, unspecified; E87.6 Hypokalemia; D69.6 Thrombocytopenia, unspecified; F29 Unspecified psychosis not due to a substance or known physiological condition; F15.129 Other stimulant abuse with intoxication, unspecified; E86.0 Dehydration
CPT/HCPCS: 36415; 36568; 36569; 76881-26-LT; 76881-LT; 80053; 81001; 83605; 83735; 84703; 85025; 87040; 87070; 87086; 87205; 93306; A9270-GY; J1170; J1630; J1644; J2060; J3370; J3490; J7030; J7040; J7050; J7120

== ENCOUNTER 2021-01-20 23:42 | Emergency (ER) | payer MEDICAID ==
--- NOTE | 2021-01-21 00:05 | EDM.PDOC ---
ED HPI GENERAL MEDICAL PROBLEM - General Chief Complaint: Wound Recheck Stated Complaint: REAL SICK Time Seen by Provider: 01/21/21 00:04 Source of Information: Reports: Patient History Limitations: Reports: No Limitations - History of Present Illness INITIAL COMMENTS - FREE TEXT/NARRATIVE: Patient is a 35-year-old female with a rather complicated recent past medical history including leaving from [facility] AGAINST MEDICAL ADVICE today after that place PICC line which they then removed prior to her leaving AMA. Patient did receive a dose of antibiotics through the PICC line prior to its discharge and she has a prescription that was phoned into her pharmacy and the [place] area that she will fill tomorrow. Patient is here tonight because she wants to have her abscess that is on her left forearm which was drained and packed to be repacked. Forearm appears to be well-healing to me now no sign of lymphangitis or current discharge. Patient is talking about returning to [place] to be readmitted tonight. I have assured her that they are unlikely to admit her and looking at her abscess which appears to be healing I do not think she needs admission and I am unclear why they gave her a PICC line instead of IM medications. Patient is comfortable with us putting a dressing on her abscess area and she will fill her prescription tomorrow and take her p.o. antibiotics as prescribed. She is aware she may return to emergency department if her arm becomes more swollen she is lymphangitis, increased pain or swelling. She may also return if she is feeling feverish or having chills. Onset: Unknown/Unsure Location: Reports: Lower Extremity, Left Severity: Mild Associated Symptoms: Reports: No Other Symptoms Left Arm Pain Score (Numeric/FACES): 10 - Related Data Allergies Allergy/AdvReac Type Severity Reaction Status Date / Time No Known Allergies Allergy Verified 01/20/21 23:56 Past Medical History - Past Health History Medical/Surgical History: Denies Medical/Surgical History Psychiatric History: Reports: Addiction - Infectious Disease History Infectious Disease History: Reports: Hepatitis C Social & Family History - Family History Family Medical History: Unobtainable Oncologic: Reports: Other (See Below) (father with multiple cancers) - Caffeine Use Caffeine Use: Reports: None ED ROS GENERAL - Review of Systems Review Of Systems: Comprehensive ROS is negative, except as noted in HPI. ED EXAM, SKIN/RASH Exam: See Below Exam Limited By: No Limitations General Appearance: Alert, Anxious Head: Normocephalic Neck: Normal Inspection Respiratory/Chest: No Respiratory Distress Extremities: Other (Patient does have a incised abscess on her left lateral forearm that appears to be well-healed. I do not see any surrounding cellulitis. There is no active discharge currently. The rest of her forearm does not appear to be swollen or painful.) Neurological: Alert Psychiatric: Anxious Skin: Warm, Dry, Normal Color, Other (See above.) Location, Skin: Other (Healing abscess left forearm.) Course - Vital Signs Last Recorded V/S: Last Vital Signs Temp 97.2 F 01/20/21 23:54 Pulse 75 01/20/21 23:54 Resp 20 01/20/21 23:54 BP 122/74 01/20/21 23:54 Pulse Ox 93 L 01/20/21 23:54 Departure - Departure Time of Disposition: 00:29 Disposition: Home, Self-Care 01 Condition: Good Clinical Impression: Abscess of left arm - Discharge Information Instructions: Incision and Drainage, Care After, How to Change Your Wound Dressing, [id number] Referrals: PCP,None [Primary Care Provider] - Forms: ED Department Discharge Additional Instructions: Change her dressing every day after light coat of antibiotic ointment. Return to ER if any sign of infection take your antibiotic as prescribed follow-up with PCP tomorrow for recheck symptoms. Sepsis Event Note (ED) - Evaluation Sepsis Screening Result: No Definite Risk - Focused Exam Vital Signs: Vital Signs Temp Pulse Resp BP Pulse Ox 01/20/21 23:54 97.2 F 75 20 122/74 93 L
== END 2021-01-21 00:35 | disposition home or self-care (01) ==
LOC: JD.ED 23:42
DX: L02.414 Cutaneous abscess of left upper limb (principal)
CPT/HCPCS: 99282